=== PATIENT | female | born 1970 | race Caucasian/White ===

== ENCOUNTER → 2018-02-09 15:13 | Outpatient (CLI) | payer BC, SELFPAY ==
--- NOTE | 2018-02-09 15:14 | US_ITS ---
STUDY: ULTRASOUND TRANSVAGINAL CLINICAL: Female, 47 years old. Pelvic pain TECHNIQUE: Transvaginal COMPARISON: None. FINDINGS: Normal uterine size measuring 10.6 x 5.5 x 5.2 cm in maximal craniocaudal dimension. Uterus is diffusely heterogeneous. There are probable poorly defined fibroids, largest is 2.4 cm greatest dimension. Normal endometrial thickness measuring 4 mm. Endometrial echoes are heterogeneous. There are no endometrial masses, and there is no fluid in the endometrial cavity. Nabothian cyst of the uterine cervix. Normal right ovary, measuring 2.6 x 1.8 x 1.8 cm. There are multiple follicles without a dominant cyst. Normal left ovary, measuring 2.2 x 2.6 x 1.1 cm. There are multiple follicles without a dominant cyst. There is no free fluid in the pelvis. A normal bladder contour is seen. Bladder volume is 4 38 mL. US/Pelvic (Non ) IMPRESSION: Heterogeneous enlarged uterus consistent with leiomyomatous change and at least one focal 2.4 cm fibroid. Electronically Signed: Poncho Lawson MD at 19:40 EDT , Service support ,
--- NOTE | 2018-02-09 15:14 | US_ITS ---
STUDY: ULTRASOUND TRANSVAGINAL CLINICAL: Female, 47 years old. Pelvic pain TECHNIQUE: Transvaginal COMPARISON: None. FINDINGS: Normal uterine size measuring 10.6 x 5.5 x 5.2 cm in maximal craniocaudal dimension. Uterus is diffusely heterogeneous. There are probable poorly defined fibroids, largest is 2.4 cm greatest dimension. Normal endometrial thickness measuring 4 mm. Endometrial echoes are heterogeneous. There are no endometrial masses, and there is no fluid in the endometrial cavity. Nabothian cyst of the uterine cervix. Normal right ovary, measuring 2.6 x 1.8 x 1.8 cm. There are multiple follicles without a dominant cyst. Normal left ovary, measuring 2.2 x 2.6 x 1.1 cm. There are multiple follicles without a dominant cyst. There is no free fluid in the pelvis. A normal bladder contour is seen. Bladder volume is 4 38 mL. US/Transvaginal Non- IMPRESSION: Heterogeneous enlarged uterus consistent with leiomyomatous change and at least one focal 2.4 cm fibroid. Electronically Signed: Poncho Lawson MD at 19:40 EDT , Service support ,
== END ==
PROVIDERS: Family Provider Family Medicine; PCP Family Medicine; Visit Provider Obstetrics & Gynecology
DX: N94.6 Dysmenorrhea, unspecified (principal); M54.5 Low back pain
CPT/HCPCS: 76830; 76856; 93976

== ENCOUNTER 2018-05-03 06:11 | Day surgery (SDC) | payer BC, SELFPAY ==
[2018-04-13 11:37] LABS: Hematocrit 41.3 % (37-47); Hemoglobin 13.9 g/dl (12.0-15.0); Mean Corp Hgb Conc 33.7 g/gl (32-36); Mean Corpuscular Hgb 31.3 pg (27.0-32.0); Mean Platelet Vol. 10.5 fl (6.2-12.0); Platelet Count 289 K/mm3 (150-450); RBC Distribution Width CV 12.5 % (11.6-14.6); RBC Distribution Width SD 41.7 fl (35.1-43.9); Red Blood Count 4.44 M/mm3 (4.2-5.4); White Blood Count 5.8 K/mm3 (4.4-11.0)
[2018-04-13 11:40] LABS: Scan Indicated on CBC? Y/N NO
[2018-04-13 11:46] LABS: AST(SGOT) 11 U/L (15-37); Alanine Aminotransfer ALT/SGPT 22 U/L (13-56); Albumin, Serum 3.7 g/dL (3.2-5.0); Alkaline Phosphatase 47 U/L (45-117); Globulin 3.5 g/dL (2.2-4.2); Protein, Total 7.2 g/dL (6.4-8.2)
[2018-04-13 11:55] LABS: Prothrombin Time (Protime)PT. 13.3 SECONDS (11.7-14.9)
[2018-04-13 11:56] LABS: Partial Thromboplast Time 28.9 Seconds (24.1-36.2)
[2018-05-03] VITALS (11 sets, daily range): BP systolic 108–149; BP diastolic 54–90; PULSE 47–78; RESP 14–18; TEMP 35.7–37; O2SAT 93–100; BMI 37.9; BMI 38.0
--- NOTE | 2018-05-03 | HYST_PTH ---
PATIENT: KIMBERLY PASCUAL LOC: [facility] [place] U#:[id number] AGE/SX: 47/F ROOM: RE05/03/[address]: Dr. Lavern Angeles MD : 1970 BED: DIS: 05/04/2018 SPEC #: [id number] RECD: 05/03/18 10:36 STATUS: JOVITA ALANA #: [id number] PIEDAD: 05/03/18 00:[address]: Lavern Angeles DEPT: SURGICAL PATHOLOGY RECD BY: José Cooley ENTERED: 05/03/18 10:36 SP TYPE: HYSTERECT OTHR DR: Dr. Juan R Garrison MD Tissues: Uterus, NOS Procedures: Surgery Specimen Level V HEADER OPERATION: Hysterectomy, lap assisted vaginal, salpingectomy, cysto PRE-OP DIAGNOSIS: Postablation, pelvic pain, dysmenorrhea TISSUE SUBMITTED: Uterus, bilateral fallopian tubes MICROSCOPIC DIAGNOSIS Uterus and bilateral fallopian tubes, vaginal hysterectomy and bilateral salpingectomy: Cervix ? chronic cystic cervicitis. Endometrium ? proliferative endometrium. Myometrium ? intramural and submucosal leiomyomas (largest measuring 3 cm in greatest dimension). Focal adenomyosis. Bilateral fallopian tubes - no pathologic diagnosis. SJ:bernard 05/04/18 MICROSCOPIC DESCRIPTION Slides are reviewed. GROSS DESCRIPTION Received in fixative is one container labeled with the patient's name and designated uterus, bilateral fallopian tubes. The specimen consists of a hysterectomy specimen consisting of uterus with cervix and attached bilateral fallopian tubes. The uterus with cervix weighs 178 gm and measures 11 x 7 x 7 cm. The serosal surface is nuñez, glistening. The ectocervical mucosa is unremarkable. The external os is oval and patulous in contour. The endocervical canal measures 3.5 cm in length and the endocervical mucosa is without any mass lesion. Sections of cervix reveal a few cysts filled with mucoid material. The endometrial cavity is fibrotic in the proximal portion and narrow and measures 2 cm in length and 0.5 cm in width. The endometrium is nuñez, glistening and measures <0.1 cm in thickness. Sections of the uterine wall reveal multiple nodular masses. The largest mass measures 3 cm in greatest dimension. The masses are submucosal to intramural in location. Sections of these masses reveal nuñez whorled cut surfaces without areas of hemorrhage, necrosis or cystic degeneration. The uninvolved uterine wall measures up to 3 cm in thickness. The right fallopian tube measures 5.5 cm in length and up to 1 cm in width. The fimbrial end is identified. A paratubal cyst is noted measuring 1 cm in greatest dimension. The left fallopian tube is similar appearance to right and measures 6 cm in length and up to 1 cm in width. Sections of both fallopian tubes do not reveal any mass lesion. Line Producer sections are submitted in ten cassettes as follows: 1 - anterior cervix, 2 - posterior cervix, 3 & 4 - anterior uterine wall, 5 & 6 - posterior uterine wall, 7 ? smaller and intermediate size nodular masses, 8 ? largest nodular mass, 9 ? right fallopian tube, 10 ? left fallopian tube. / FLOYD:rg 05/03/18 TC:1 CPT: 09182
[2018-05-03] MEDS: Lubricating Jelly 60 GM Tube 30 GM TOPICAL (06:56)
[2018-05-03] MEDS: Phenazopyridine 95 MG Tablet PO (07:00)
[2018-05-03 07:06] LABS: Internal QC Validated? YES +Cl - CLEAR BKGD; Pregnancy, Urine Negative Negative
--- NOTE | 2018-05-03 07:29 | HP.PCM_ITS ---
- Problem List (1) Abnormal uterine bleeding Status: Acute (2) Pelvic pain Status: Acute History Date of Admission: 05/03/18 History of this : This is a 47 year-old presents with pelvic pain and AUB, failed ablation and medical management, plan laparoscopic hysterectomy Surgical History: Surgical History (Last Updated 02/05/18 @ 13:14 by Kely Jiang) S/P dilation and curettage Z98.890 x2 uterine ablation Allergies No Known Allergies Allergy (Verified 04/13/18 10:11) Home Medications: Home Medications NK [NK] 02/05/18 Smoking Status: Never smoker History Past Pregnancies: Past Pregnancies Delivery Date Name GA/Weeks Outcome Route Weight Gender Labor Length Anesthesia Delivery Location Provider FOB Review of Systems Constitutional: Denies: Fever, Malaise Eyes: Denies: Blurred vision, Vision Change HEENT: Denies: Head Aches, Visual Changes Cardiovascular: Denies: Chest Pain, Palpitations Respiratory: Denies: Cough, Shortness of Breath, Wheezing Gastrointestinal: Denies: Abdominal Pain, Diarrhea, Nausea, Vomiting Genitourinary: Denies: Dysuria, Hematuria Musculoskeletal: Denies: Joint Pain, Muscle pain Skin: Denies: Lesions, Rash Neurological: Denies: Blurred vision, Focal weakness, Headaches Psychiatric: Denies: Anxiety, Depression Endocrine: Denies: Heat/ Cold Intolerance Hematologic/ Lymphatic: Denies: Easy Bruising, Easy Bleeding Physical Exam Vitals: Vital Signs Temp Pulse Resp BP Pulse Ox 98.6 F 77 18 123/57 H 100 05/03/18 06:39 05/03/18 06:39 05/03/18 06:39 05/03/18 06:39 05/03/18 06:39 General: Alert, Cooperative, No apparent distress HEENT: Atraumatic, Normocephalic. Negative for: Thyromegaly, Lymphadenopathy Cardiovascular: Regular rate Lungs: Normal air movement Abdomen: Soft, Non Tender Neurological: Deep Tendon Reflexes 2+/4 and Symmetrical, Neuro grossly intact. Negative for: Clonus VOCATIONAL HORTICULTURE INSTRUCTOR: Normal external genitalia. Negative for: Vulvar lesions Assessment/Plan All Active Problems (Last Reviewed 02/05/18 @ 13:13 by Kely Jiang) Abnormal uterine bleeding (Acute) Pelvic pain (Acute) This is a 47 year-old, presents for LAVH BS cystosocpy discussed surgical risks including risks of anesthesia, infection, bleeding, injury to bowel, bladder or blood vessels, and patient wishes to proceed with surgery.
--- NOTE | 2018-05-03 07:29 | PCM.OPRPT ---
Problem List (1) Abnormal uterine bleeding Status: Acute (2) Pelvic pain Status: Acute Report of Operation Date of Procedure: 05/03/18 Pre-Operative Diagnosis: pelvic pain AUB dysmenorrhea Post-Operative Diagnosis: Same Surgery/Procedure Performed:: lavh bs cystosocpy Description of Surgical Findings:: Enlarged uterus normal bilateral fallopian tubes and ovaries ore roaster: Germaine Kearns Type of Anesthesia:: General Special Medications: None Specimen's removed: uterus tubes Drains: silvestre Estimated Blood Loss (mL): 100 Fluids Replaced: crystalloid Description of Procedure: Patient received preoperative antibiotics and SCDs were on preoperatively. Patient was taken back to the operating room and placed in the dorsal lithotomy position. General anesthesia was induced and patient was prepped and draped in normal sterile fashion. Uterine manipulator was placed inside the uterus and Silvestre catheter placed in the bladder. The umbilicus was grasped with towel clamps and an intraumbilical incision was made after injecting with quarter percent Marcaine and a Veress needle entered into the abdomen confirmed to be intra-abdominal with a low opening pressure. Abdomen was insufflated with CO2 gas and the Veress needle removed and the 5 mm trocar was placed under direct visualization without complication. Right and left lower quadrants were transilluminated and injected with quarter percent Marcaine and 5 mm ports placed under direct visualization. Pelvis was well visualized see operative findings for additional information. Bilateral fallopian tubes were identified and transected with the LigaSure device across the mesosalpinx to the level of the utero-ovarian ligament which was also transected with the LigaSure device. The broad ligament was opened up by transecting the round ligament bilaterally and skeletonizing the uterine vessels bilaterally and creating a bladder flap using the LigaSure device. The uterine arteries were transected bilaterally with good visualization of the bladder and the ureters were seen to be inferior lateral to the operative area. Attention was then paid to the vaginal portion of the procedure and the cervix was grasped with Nicolette clamps and circumferentially injected with dilute vasopressin. A circumferential incision was made and the vaginal mucosa was mobilized off posteriorly and the cul-de-sac entered into sharply and a longneck speculum placed. The anterior cul-de-sac was then identified and entered into sharply. The uterosacral ligaments were clamped cut and suture ligated with 0 Monocryl bilaterally followed by the cardinal ligaments which were clamped cut and suture ligated bilaterally with 0 Monocryl. The uterus serially descended and was removed without difficulty with minimal morcellation. Pelvic sidewall pedicles were checked and noted to have excellent hemostasis. The vaginal mucosa was reapproximated incorporating the posterior peritoneum. This was reapproximated using 0 Vicryl [id number] sutures. Excellent hemostasis was noted. The cystoscopy was then performed and bilateral ureteral strong spray was noted and the bladder was noted to have no abnormality or lesions seen. Silvestre catheter was replaced and then attention paid to the abdominal portion of the procedure again. The pelvis and cul-de-sac was well visualized and no significant active bleeding noted but some raw areas were seen on the peritoneum and therefore Denise was applied. Pressure was taken down and the areas visualized and noted of excellent hemostasis. All ports were removed under direct visualization without complication and the abdomen was desufflated of air. The instruments removed from the abdomen and the vagina vaginal sweep was negative. Port sites on the abdomen were closed with 4-0 Monocryl interrupted sutures and Steri's and windows were applied. She was awoken and taken recovery in stable condition. Grafts/Implants Used: none - Admit VTE Documentation VTE Present on Admission: No VTE Mechan Device Prophylaxis: SCD's
--- NOTE | 2018-05-03 07:33 | OP.PCM_ITS ---
Problem List (1) Abnormal uterine bleeding Status: Acute (2) Pelvic pain Status: Acute Report of Operation Date of Procedure: 05/03/18 Pre-Operative Diagnosis: pelvic pain AUB dysmenorrhea Post-Operative Diagnosis: Same Surgery/Procedure Performed:: lavh bs cystosocpy Description of Surgical Findings:: Enlarged uterus normal bilateral fallopian tubes and ovaries assistant softball coach: Germaine Kearns Type of Anesthesia:: General Special Medications: None Specimen's removed: uterus tubes Drains: silvestre Estimated Blood Loss (mL): 100 Fluids Replaced: crystalloid Description of Procedure: Patient received preoperative antibiotics and SCDs were on preoperatively. Patient was taken back to the operating room and placed in the dorsal lithotomy position. General anesthesia was induced and patient was prepped and draped in normal sterile fashion. Uterine manipulator was placed inside the uterus and Silvestre catheter placed in the bladder. The umbilicus was grasped with towel clamps and an intraumbilical incision was made after injecting with quarter percent Marcaine and a Veress needle entered into the abdomen confirmed to be intra-abdominal with a low opening pressure. Abdomen was insufflated with CO2 gas and the Veress needle removed and the 5 mm trocar was placed under direct visualization without complication. Right and left lower quadrants were transilluminated and injected with quarter percent Marcaine and 5 mm ports placed under direct visualization. Pelvis was well visualized see operative findings for additional information. Bilateral fallopian tubes were identified and transected with the LigaSure device across the mesosalpinx to the level of the utero-ovarian ligament which was also transected with the LigaSure device. The broad ligament was opened up by transecting the round ligament bilaterally and skeletonizing the uterine vessels bilaterally and creating a bladder flap using the LigaSure device. The uterine arteries were transected bilaterally with good visualization of the bladder and the ureters were seen to be inferior lateral to the operative area. Attention was then paid to the vaginal portion of the procedure and the cervix was grasped with Nicolette clamps and circumferentially injected with dilute vasopressin. A circumferential incision was made and the vaginal mucosa was mobilized off posteriorly and the cul-de- sac entered into sharply and a longneck speculum placed. The anterior cul-de- sac was then identified and entered into sharply. The uterosacral ligaments were clamped cut and suture ligated with 0 Monocryl bilaterally followed by the cardinal ligaments which were clamped cut and suture ligated bilaterally with 0 Monocryl. The uterus serially descended and was removed without difficulty with minimal morcellation. Pelvic sidewall pedicles were checked and noted to have excellent hemostasis. The vaginal mucosa was reapproximated incorporating the posterior peritoneum. This was reapproximated using 0 Vicryl figure-of- eight sutures. Excellent hemostasis was noted. The cystoscopy was then performed and bilateral ureteral strong spray was noted and the bladder was noted to have no abnormality or lesions seen. Silvestre catheter was replaced and then attention paid to the abdominal portion of the procedure again. The pelvis and cul-de-sac was well visualized and no significant active bleeding noted but some raw areas were seen on the peritoneum and therefore Denise was applied. Pressure was taken down and the areas visualized and noted of excellent hemostasis. All ports were removed under direct visualization without complication and the abdomen was desufflated of air. The instruments removed from the abdomen and the vagina vaginal sweep was negative. Port sites on the abdomen were closed with 4-0 Monocryl interrupted sutures and Steri's and windows were applied. She was awoken and taken recovery in stable condition. Grafts/Implants Used: none - Admit VTE Documentation VTE Present on Admission: No VTE Mechan Device Prophylaxis: SCD's
[2018-05-03] MEDS: Vasopressin 20 UNITS/ML Vial (08:20)
[2018-05-03] MEDS: Bupivacaine 0.25% 30 ML Vial (08:45)
[2018-05-03] MEDS: Ketorolac 30 MG/ML Syringe IV ×2 (12:41→18:16)
[2018-05-03] MEDS: Dextrose 5%-Lactated Ringers 1,000 ML 125 ML IV ×2 (12:41→21:15)
[2018-05-03] MEDS: 0.9% Normal Saline 1,000 ML 999 ML IV (12:45)
[2018-05-03] MEDS: Acetaminophen 500 MG Tablet 1000 MG PO ×2 (14:33→21:48)
[2018-05-03] MEDS: Ondansetron 4 MG/2 ML Vial IV (18:22)
[2018-05-03] MEDS: Enoxaparin 40 MG/0.4 ML Syringe SC (21:48)
[2018-05-04] MEDS: Ketorolac 30 MG/ML Syringe IV ×2 (01:07→06:14)
[2018-05-04 01:55] VITALS: BP 121/64; PULSE 88; RESP 16; TEMP 37.2; O2SAT 95
[2018-05-04] MEDS: Acetaminophen 500 MG Tablet 1000 MG PO (05:16)
[2018-05-04] MEDS: 0.9% NaCl Peripheral Flush Adult/Peds IV (06:14)
[2018-05-04 06:48] LABS: Hematocrit 34.9 % (37-47); Hemoglobin 11.7 g/dl (12.0-15.0); Mean Corp Hgb Conc 33.5 g/gl (32-36); Mean Corpuscular Hgb 30.9 pg (27.0-32.0); Mean Corpuscular Volume 92.1 fL (81-99); Mean Platelet Vol. 10.4 fl (6.2-12.0); Platelet Count 278 K/mm3 (150-450); RBC Distribution Width CV 12.7 % (11.6-14.6); RBC Distribution Width SD 42.8 fl (35.1-43.9); Red Blood Count 3.79 M/mm3 (4.2-5.4); White Blood Count 13.8 K/mm3 (4.4-11.0)
[2018-05-04 06:55] LABS: Scan Indicated on CBC? Y/N NO
[2018-05-04 08:15] VITALS: O2SAT 95
--- NOTE | 2018-05-04 09:31 | PCM.DC.VHY ---
Discharge Diet: No Restrictions Discharge Activity: Return to Normal Activity, May Not Drive, May Shower May resume sexual activity in: 6-8 weeks Call your doctor if your incision/area has: Continuous Slow Oozing, Sudden Increased Bleeding, Increased Pain/ Swelling, Increased Redness, Foul Smelling Discharge Call your doctor if you observe: Fever of 101 or Higher, Inability to urinate, Inability to have a bowel movement, Using more than one pad per hour Allergies/Adverse Reactions: Allergies No Known Allergies Allergy (Verified 04/13/18 10:11) Medications to take at Discharge Naproxen [Naprosyn] 250 - 500 mg PO Q8H PRN PRN #30 tab 05/04/18 Oxycodone HCl/Acetaminophen [Percocet 5-325] 1 - 2 tablet PO Q4H PRN PRN 7 Days #28 tablet 05/04/18 The following prescriptions were given: Oxycodone HCl/Acetaminophen [Percocet 5-325] 1 - 2 tablet PO Q4H PRN PRN 7 Days #28 tablet PRN Reason: Moderate-Severe pain Naproxen [Naprosyn] 250 - 500 mg PO Q8H PRN PRN #30 tab PRN Reason: MILD PAIN Primary Care Physician: Juan R Garrison MD [Primary Care Provider] - Please Follow Up With: Lavern Angeles MD - [phone]
--- NOTE | 2018-05-04 09:32 | PCM.PN.OB ---
Patient Problems: Active and Suspected Problems (Last Reviewed 02/05/18 @ 13:13 by Kely Jiang) Abnormal uterine bleeding (Acute) Pelvic pain (Acute) Subjective: doing well no complaints - Physical Exam Vital Signs Temp Pulse Resp BP Pulse Ox 99.0 F 88 16 121/64 H 95 05/04/18 01:55 05/04/18 01:55 05/04/18 01:55 05/04/18 01:55 05/04/18 08:15 Oxygen Flow Rate (L/min) 2 Oxygen Delivery Method Room Air Weight: 236 lb 0.007 oz Body Mass Index (BMI) 38.0 Intake and Output for Last 24 Hours 05/02/18 05/03/18 05/04/18 23:59 23:59 23:59 Intake Total 5102 / 5102 1237 / 1237 Output Total 2580 / 2580 1100 / 1100 Balance 2522 / 2522 137 / 137 Laboratory Tests Past 24 Hrs 05/04/18 05:12 WBC 13.8 H RBC 3.79 L Hgb 11.7 L Hct 34.9 L MCV 92.1 MCH 30.9 MCHC 33.5 RDW 12.7 RDW Differential 42.8 Plt Count 278 MPV 10.4 Medical Necessity - Tobacco Use Smoking Status: Never smoker Assessment/Plan All Active Problems (Last Reviewed 02/05/18 @ 13:13 by Kely Jiang) Abnormal uterine bleeding (Acute) Pelvic pain (Acute) s/p LAVH doing well routine care nv home
[2018-05-04 10:03] VITALS: BP 97/54; PULSE 72; RESP 18; TEMP 36.9; O2SAT 97
== END 2018-05-04 10:25 | disposition home or self-care (01) ==
LOC: SDC 06:11 → AC 06:12 → MS3 05-04 06:35
PROVIDERS: Family Provider Family Medicine; PCP Family Medicine; Visit Provider Obstetrics & Gynecology
PROC: 0UT9FZZ Resection of Uterus, Via Natural or Artificial Opening With Percutaneous Endoscopic Assistance (ICD-10-PCS; CPT 58552; principal; 2018-05-03 07:05)
DX: N72 Inflammatory disease of cervix uteri (principal); N93.9 Abnormal uterine and vaginal bleeding, unspecified; R10.2 Pelvic and perineal pain
CPT/HCPCS: 00840; 58552; 36415; 80076; 81025; 85027; 85610; 85730; 86850; 86900; 88307; J7030; J7120; A4216; J2405

== ENCOUNTER 2018-06-19 10:33 | Day surgery (SDC) | payer BC, SELFPAY ==
[2018-06-08 13:53] LABS: Hematocrit 41.1 % (37-47); Hemoglobin 13.6 g/dl (12.0-15.0); Mean Corp Hgb Conc 33.1 g/gl (32-36); Mean Corpuscular Hgb 30.8 pg (27.0-32.0); Mean Platelet Vol. 10.1 fl (6.2-12.0); Platelet Count 294 K/mm3 (150-450); RBC Distribution Width CV 12.6 % (11.6-14.6); RBC Distribution Width SD 42.5 fl (35.1-43.9); Red Blood Count 4.42 M/mm3 (4.2-5.4)
[2018-06-08 13:55] LABS: Scan Indicated on CBC? Y/N NO
[2018-06-18 12:57] LABS: Mucous, Urine 0 SEEN /hpf (<or=2+); Red Blood Cells-Urine 0 SEEN /hpf (0-5); White Blood Cells 0 SEEN /hpf (0-5)
[2018-06-18 13:50] LABS: Color, Urine Yellow (Yellow); Glucose, Dipstick Normal (Normal); Ketone-Dipstick Negative (Negative); Leukocyte Esterase-Dipstick Negative /ul (Negative); Nitrite-Dipstick Negative (Negative); Occult Blood-Urine 10 /ul (Negative); Protein-Dipstick Negative (Negative); Urine Bilirubin Dipstick Negative (Negative); Urine Clarity Sl. Cloudy (Clear); Urine Urobilinogen Normal (Normal)
[2018-06-18 13:58] LABS: Bacteria RARE /hpf (None Seen); Squamous Epithelial Cells - UA 0-5 SEEN /hpf (5-10)
--- NOTE | 2018-06-19 | IMM_PTH ---
PATIENT: KIMBERLY PASCUAL LOC: [facility] – [place] U#:[id number] AGE/SX: 47/F ROOM: RE06/19/[address]: Dr. Marysol Dunn MD : 1970 BED: DIS: 06/19/2018 SPEC #: [id number] RECD: 06/20/18 12:42 STATUS: JOVITA REQ #: [id number] PIEDAD: 06/19/18 00:[address]: Marysol Dunn DEPT: IMMUNOHISTOCHEMISTRY RECD BY: Ifrah Montalvo ENTERED: 06/20/18 12:43 SP TYPE: IMMUNO OTHR DR: Dr. Juan R Garrison MD Tissues: Urinary bladder, NOS Procedures: CK20 (add) P53 (add) CK7 (initial) PHYSICIAN & INSTITUTION [place] [id number] SPECIMEN INFORMATION: Tissue Source: Bladder mass Clinical Info: Bladder mass Specimen Number: [id number] CPT code: 71106, 91631 x2 METHODOLOGY: Deparaffinized sections of prefer/formalin-fixed tissue or PAP/DQ stained slides are incubated with monoclonal/polyclonal antibodies/oligonucleotide probes. Localization is made via biotin free immunoperoxidase method. Appropriate controls are performed and reacted as expected. Results on target cell population are indicated in the following table: RESULTS: ANTIBODY / CLONE RESULT CK7 (OV-TL12/30) positive CK20 (KS20.8) negative P53 (DO-7) negative These tests were developed and their performance characteristics determined by [facility]. They may not have been cleared or approved by the U.S. Food and Drug Administration. The FDA has determined that such clearance or approval is not necessary. INTERPRETATION: Bladder mass: Negative for malignancy. SJ:bernard 06/21/18 Case has been reviewed in consultation with Dr. Mejía who concurs with the above diagnosis. IDC:AM
[2018-06-19 10:46] VITALS: BP 135/66; PULSE 76; RESP 16; TEMP 37.1; O2SAT 99; BMI 39.8
--- NOTE | 2018-06-19 11:28 | DCINST_ITS ---
Discharge Diet: No Restrictions Discharge Activity: May not drive while taking narcotic pain medications. May resume sexual activity in: 2 weeks Call your doctor if you observe: Fever of 101 or Higher, Inability to urinate, Inability to have a bowel movement, Shortness of breath, Chest pain, Calf discomfort, Uncontrolled pain Allergies/Adverse Reactions: Allergies adhesive tape Allergy (Verified 06/08/18 09:06) Rash Medications to take at Discharge Cephalexin [Keflex] 500 mg PO Q12 3 Days #6 cap 06/19/18 The following prescriptions were given: Cephalexin [Keflex] 500 mg PO Q12 3 Days #6 cap Primary Care Physician: Juan R Garrison MD [Primary Care Provider] - Test Results: Test results from this visit will be discussed in further detail at your follow- up appointment, if applicable. Please Follow Up With: Marysol Dunn MD - 1 week
[2018-06-19] MEDS: Cefazolin 2 GM in 0.9% Normal Saline 100 ML IV (11:35)
[2018-06-19 12:05] VITALS: BP 121/71; BP 135/66; PULSE 63; RESP 16; TEMP 36.9; O2SAT 97
--- NOTE | 2018-06-19 12:10 | MASS_PTH ---
PATIENT: KIMBERLY PASCUAL LOC: [facility] – [place] U#:[id number] AGE/SX: 47/F ROOM: RE06/19/[address]: Dr. Marysol Dunn MD : 1970 BED: DIS: 06/19/2018 SPEC #: [id number] RECD: 06/19/18 12:28 STATUS: JOVITA ALANA #: [id number] PIEDAD: 06/19/18 12:[address]: Marysol Dunn DEPT: SURGICAL PATHOLOGY RECD BY: Thanh Ferguson ENTERED: 06/19/18 13:19 SP TYPE: Mass OTHR DR: Dr. Juan R Garrison MD Tissues: Urinary bladder, NOS Procedures: Surgery Specimen Level IV HEADER OPERATION: TUR bladder, Olympus PRE-OP DIAGNOSIS: Bladder mass TISSUE SUBMITTED: Bladder mass MICROSCOPIC DIAGNOSIS Bladder mass, biopsy: A piece of urothelial mucosa with chronic inflammation and changes consistent with cystitis cystica glandularis. Fragments of squamous mucosa with cautery artifact, no pathologic diagnosis. Negative for malignancy. See comment. FLOYD:bernard 06/20/18 COMMENT Cautery artifacts are noted in both pieces. Detrusor muscle is not seen in the submitted specimen. Immunohistochemistry ([id number]) supports the above diagnosis. Case has been reviewed in consultation with Dr. Mejía who concurs with the above diagnosis. IDC:AM MICROSCOPIC DESCRIPTION Slides are reviewed. GROSS DESCRIPTION Received in fixative is one container labeled with the patient's name and designated bladder mass. The specimen consists of two pieces of nuñez-pink soft tissue measuring in aggregate 0.7 x 0.5 x 0.2 cm. The specimen is totally submitted in one cassette. / FLOYD:bernard 06/19/18 TC:3 CPT: 49207
[2018-06-19 12:15] VITALS: BP 111/63; BP 135/66; PULSE 66; RESP 16; O2SAT 96
--- NOTE | 2018-06-19 12:20 | PCM.IMDPSTOP ---
Immediate Post-Op Note Date of Procedure: 06/19/18 Primary Surgeon/Physician: Marysol Dunn MD game manager: Marysol Dunn Pre-Operative Diagnosis: Bladder mass Post-Operative Diagnosis: same Surgery/Procedure Performed:: cystoscopy, transurethral resection bladder tumor, small Description of Surgical Findings:: 1cm mass and deep sample removed. hemostasis achieved. no other lesion identified. no complication. Estimated Blood Loss: 2cc Specimen's removed: bladder mass Type of Anesthesia:: General Special Medications: ancef - Admit VTE Documentation VTE Present on Admission: Yes VTE Mechan Device Prophylaxis: SCD's VTE Pharm Prophylaxis ordered?: No Reason prophylaxis not ordered:: Treatment Not Indicated
--- NOTE | 2018-06-19 12:23 | OP.PN_ITS ---
Immediate Post-Op Note Date of Procedure: 06/19/18 Primary Surgeon/Physician: Marysol Dunn MD plain clothes police officer: Marysol Dunn Pre-Operative Diagnosis: Bladder mass Post-Operative Diagnosis: same Surgery/Procedure Performed:: cystoscopy, transurethral resection bladder tumor , small Description of Surgical Findings:: 1cm mass and deep sample removed. hemostasis achieved. no other lesion identified. no complication. Estimated Blood Loss: 2cc Specimen's removed: bladder mass Type of Anesthesia:: General Special Medications: ancef - Admit VTE Documentation VTE Present on Admission: Yes VTE Mechan Device Prophylaxis: SCD's VTE Pharm Prophylaxis ordered?: No Reason prophylaxis not ordered:: Treatment Not Indicated
--- NOTE | 2018-06-19 12:23 | PCM.OPRPT ---
Problem List (1) Bladder mass Status: Acute Report of Operation Date of Procedure: 06/19/18 Pre-Operative Diagnosis: Bladder mass Post-Operative Diagnosis: same Surgery/Procedure Performed:: cystoscopy, transurethral resection bladder tumor, small Description of Surgical Findings:: 1cm mass and deep sample removed. hemostasis achieved. no other lesion identified. no complication. animal damage control agent: Marysol Dunn Type of Anesthesia:: General Special Medications: ancef Specimen's removed: bladder mass Estimated Blood Loss (mL): 2cc Description of Procedure: The patient is a 47-year-old female that had a hysterectomy with a cystoscopy at the conclusion of the case approximately 5 weeks ago. At that time a 0.5 cm bladder lesion was identified and the patient was sent to me in the office. She presents today for resection of the tissue. All risks benefits and alternatives were discussed in the office and she agreed to proceed. Patient was taken to the operating room and placed on the operating room table. Anesthesia monitored the head neck area IV access and vital signs throughout the case. Once anesthesia was appropriately administered the patient was placed into dorsal lithotomy position was prepped and draped in usual sterile fashion. Using a 30? lens a cystoscopy was performed and no other lesions were identified. The lesion in question was located on the trigone and was approximately 1 cm in size, enlarged and more papillary in nature than visualized on the previous photograph. It was in the middle of the trigone approximately 0.5 cm proximal to the bladder neck. The area was resected using the resectoscope and hemostasis was achieved using the resectoscope as well. There were no complications during the procedure. The patient's bladder was emptied and the specimen was sent for evaluation and pathology. The patient was awakened and taken to the recovery room in good condition.
[2018-06-19 12:25] VITALS: BP 117/65; BP 135/66; PULSE 67; RESP 16; TEMP 36.6; O2SAT 97
--- NOTE | 2018-06-19 12:26 | OP.PCM_ITS ---
Problem List (1) Bladder mass Status: Acute Report of Operation Date of Procedure: 06/19/18 Pre-Operative Diagnosis: Bladder mass Post-Operative Diagnosis: same Surgery/Procedure Performed:: cystoscopy, transurethral resection bladder tumor , small Description of Surgical Findings:: 1cm mass and deep sample removed. hemostasis achieved. no other lesion identified. no complication. director of resource development: Marysol Dunn Type of Anesthesia:: General Special Medications: ancef Specimen's removed: bladder mass Estimated Blood Loss (mL): 2cc Description of Procedure: The patient is a 47-year-old female that had a hysterectomy with a cystoscopy at the conclusion of the case approximately 5 weeks ago. At that time a 0.5 cm bladder lesion was identified and the patient was sent to me in the office. She presents today for resection of the tissue. All risks benefits and alternatives were discussed in the office and she agreed to proceed. Patient was taken to the operating room and placed on the operating room table. Anesthesia monitored the head neck area IV access and vital signs throughout the case. Once anesthesia was appropriately administered the patient was placed into dorsal lithotomy position was prepped and draped in usual sterile fashion. Using a 30? lens a cystoscopy was performed and no other lesions were identified. The lesion in question was located on the trigone and was approximately 1 cm in size, enlarged and more papillary in nature than visualized on the previous photograph. It was in the middle of the trigone approximately 0.5 cm proximal to the bladder neck. The area was resected using the resectoscope and hemostasis was achieved using the resectoscope as well. There were no complications during the procedure. The patient's bladder was emptied and the specimen was sent for evaluation and pathology. The patient was awakened and taken to the recovery room in good condition.
[2018-06-19 12:49] VITALS: BP 135/66
== END 2018-06-19 12:53 | disposition home or self-care (01) ==
LOC: SDC 10:34 → AC 10:35
PROVIDERS: Family Provider Family Medicine; PCP Family Medicine; Visit Provider Urology
PROC: 0TBB8ZZ Excision of Bladder, Via Natural or Artificial Opening Endoscopic (ICD-10-PCS; CPT 52234; principal; 2018-06-19 12:00)
DX: N30.80 Other cystitis without hematuria (principal); N32.9 Bladder disorder, unspecified
CPT/HCPCS: 00912; 52234; 36415; 81001; 85027; 88305; 88341; 88342; J7120; J2405

== ENCOUNTER 2018-10-21 11:00 | Emergency (ER) | payer BC, SELFPAY ==
[2018-10-21 11:02] VITALS: BP 160/93; PULSE 78; RESP 17; TEMP 36.7; O2SAT 99; BMI 41.5
--- NOTE | 2018-10-21 11:15 | RAD_ITS ---
STUDY: X-RAY - RIGHT SHOULDER REASON FOR EXAM: Female, 48 years old. Status post fall TECHNIQUE: 4 view(s) of the shoulder. COMPARISON: None. FINDINGS: Nondisplaced mildly comminuted fracture through the humeral head. Remainder is within normal limits RAD/Shoulder min 2 Views IMPRESSION: Nondisplaced and mildly comminuted right humeral head fracture without displacement Electronically Signed: Joshua Crews DO at 12:00 EST Tel , Service support ,
--- NOTE | 2018-10-21 11:41 | ED.VISSUMM ---
- ER Visit Summary Date of Service: 10/21/18 Chief Complaint: Right shoulder pain status post fall. History of Present Illness: The patient is a 48 F who is right-hand dominant. She slipped on the ice yesterday. She landed on her right upper extremity. She complains of pain in the right shoulder. She also has minimal pain right elbow. She denied head trauma. No neck pain. Denies paresthesia, anesthesia or motor weakness present at time of the injury. She denies cardiac respiratory symptoms. She is on no anticoagulant. Physical Examination: Patient will not move her right upper extremity. Vital signs noted and blood pressure is elevated at 160/93. HEENT exam is unremarkable with no evidence of trauma. No cervical spine tenderness and cleared per Nexus criteria. Lungs are clear to auscultation. Heart is regular without murmur, gallop or rub. There is pain palpation over the proximal humerus. Is no pain the patient over the clavicle or AC joint. There is little discomfort over the lateral epicondyle. Is no pain the patient over the medial epicondyle or olecranon process. There is no pain the patient was radial head with supination pronation. There is no pain the patient with distal radius ulna. No pain the patient with carpal bones, metacarpal bones or phalanges. Axillary, median, radial and ulnar function intact. Radial pulses palpable and symmetric. Test Results: Three-view x-ray of the right shoulder reveals a nondisplaced proximal humeral fracture involving the greater tuberosity. Emergency Department Course and Treatment: X-ray was obtained. Differential is fracture versus rotator cuff injury versus both Treatment Plan: Sling and swath and follow up with orthopedic nuclear radiation engineer Disposition: Discharged home in stable condition with spouse Impression: Nondisplaced proximal humeral fracture right This note was generated with eDealy[employer] dictation software. It may contain incorrect words, spelling, and punctuation that were not noted in review of the chart prior to signing ED Disposition - Plan for ED Patient: Disposition: Home or Assisted Living Chief Complaint: Upper Extremity Injury Instructions: ED Fx Shoulder Prescriptions: Hydrocodone Bitart/Apap 5-325 [[place] 5MG-325MG] 1 tablet PO Q6H PRN PRN 3 Days #10 tablet PRN Reason: Pain Referrals: Juan R Garrison MD [Primary Care Provider] - Lulu Avelar DO [STAFF PHYSICIAN] - 5-7 Days Additional Instructions: Your your prescription was electronically transmitted to [facility] pharmacy on [facility].
--- NOTE | 2018-10-21 11:45 | ED.DCSUM_ITS ---
- ER Visit Summary Date of Service: 10/21/18 Chief Complaint: Right shoulder pain status post fall. History of Present Illness: The patient is a 48 F who is right-hand dominant. She slipped on the ice yesterday. She landed on her right upper extremity. She complains of pain in the right shoulder. She also has minimal pain right elbow. She denied head trauma. No neck pain. Denies paresthesia, anesthesia or motor weakness present at time of the injury. She denies cardiac respiratory symptoms. She is on no anticoagulant. Physical Examination: Patient will not move her right upper extremity. Vital signs noted and blood pressure is elevated at 160/93. HEENT exam is unre markable with no evidence of trauma. No cervical spine tenderness and cleared per Nexus criteria. Lungs are clear to auscultation. Heart is regular without murmur, gallop or rub. There is pain palpation over the proximal humerus. Is no pain the patient over the clavicle or AC joint. There is little discomfort over the lateral epicondyle. Is no pain the patient over the medial epicondyle or olecranon process. There is no pain the patient was radial head with supination pronation. There is no pain the patient with distal radius ulna. No pain the patient with carpal bones, metacarpal bones or phalanges. Axillary, median, radial and ulnar function intact. Radial pulses palpable and symmetric. Test Results: Three-view x-ray of the right shoulder reveals a nondisplaced proximal humeral fracture involving the greater tuberosity. Emergency Department Course and Treatment: X-ray was obtained. Differential is fracture versus rotator cuff injury versus both Treatment Plan: Sling and swath and follow up with orthopedic station tender Disposition: Discharged home in stable condition with spouse Impression: Nondisplaced proximal humeral fracture right This note was generated with Un[employer] dictation software. It may contain incorrect words, spelling, and punctuation that were not noted in review of the chart prior to signing ED Disposition - Plan for ED Patient: Disposition: Home or Assisted Living Chief Complaint: Upper Extremity Injury Instructions: ED Fx Shoulder Prescriptions: Hydrocodone Bitart/Apap 5-325 [[place] 5MG-325MG] 1 tablet PO Q6H PRN PRN 3 Days #10 tablet PRN Reason: Pain Referrals: Juan R Garrison MD [Primary Care Provider] - Lulu Avelar DO [STAFF PHYSICIAN] - 5-7 Days Additional Instructions: Your your prescription was electronically transmitted to [facility] pharmacy on [address] [facility].
== END 2018-10-21 11:58 | disposition home or self-care (01) ==
PROVIDERS: Emergency Provider Emergency Medicine; Family Provider Family Medicine; PCP Family Medicine
DX: S42.254A Nondisplaced fracture of greater tuberosity of right humerus, initial encounter for closed fracture (principal); W00.0XXA Fall on same level due to ice and snow, initial encounter; Y93.9 Activity, unspecified; Y92.89 Other specified places as the place of occurrence of the external cause; Y99.8 Other external cause status; E66.9 Obesity, unspecified
CPT/HCPCS: 73030; 99282

== ENCOUNTER → 2018-10-30 09:41 | Outpatient (CLI) | payer BC, SELFPAY ==
[2018-10-30 09:33] VITALS: BMI 41.5
--- NOTE | 2018-10-30 09:43 | RAD_ITS ---
STUDY: X-RAY - RIGHT SHOULDER REASON FOR EXAM: Pain. TECHNIQUE: 3 view(s) of the shoulder. COMPARISON: Radiographs 10/21/2018. FINDINGS: Normal glenohumeral articulation. There is joint space narrowing of the acromioclavicular joint. Normal acromion. There is a nondisplaced fracture of the greater tuberosity. The soft tissue structures are unremarkable. Normal visualized pulmonary apex. RAD/Shoulder min 2 Views IMPRESSION: Greater tuberosity fracture without interval change. Acromioclavicular arthrosis. Electronically Signed: Ángel Julian MD at 15:22 EST Tel , Service support ,
--- OUTSIDE RECORDS SUMMARY | 2019-01-31 16:38 | XMS RPT_ITS ---
:1970 Author Organization OHIP Support Name Relationship Address Phone KAMILA PASCUAL Unavailable [address] + [place] [address] SHEAREREQU Unavailable [address] + [place] [address] KAMILA PASCUAL Unavailable [address] + [place] [address] TRI Unavailable [address] + [place] [address] KAMILA PASCUAL Unavailable [address] + [place] [address] TRI Unavailable [address] + [place] [address] KAMILA PASUCAL Unavailable [address] + [place] [address] TRI Unavailable [address] + [place] [address] KAMILA PASCUAL Unavailable [address] + [place] [address] TRI Unavailable [address] + [place] [address] AKMILA PASCUAL Unavailable [address] + [place] [address] TRI Unavailable [address] + [place] [address] KAMILA PASCUAL Unavailable [address] + [place] [address] TRI Unavailable [address] + [place] [address] KAMILA PASCUAL Unavailable [address] + [place] [address] TRI Unavailable [address] + [place] [address] SAMARA, KAMILA Unavailable [address] + [place] [address] TRI Unavailable [address] + [place] [address] SAMARA, KAMILA Unavailable [address] + [place] [address] TRI Unavailable [address] + [place] [address] SAMARA, KAMILA Unavailable [address] + [place] [address] TRI Unavailable [address] + [place] [address] SAMARA, KAMILA Unavailable [address] + [place] [address] TRI Unavailable [address] + [place] [address] SAMARA, KAMILA Unavailable [address] + [place] [address] TRI Unavailable [address] + [place] [address] Care Team Providers Name Role Phone Lulu Avelar Attending Unavailable NAUMOFF, GAVI Referring Unavailable Lulu Avelar Attending Unavailable Lulu Avelar Referring Unavailable NAUMOFF, EL DORADO Primary Care Unavailable Lavern Angeles Attending Unavailable NAUMOFF, GAVI Referring Unavailable NAUMOFF, EL DORADO Primary Care Unavailable Lavern Angeles Attending Unavailable Lavern Angeles Referring Unavailable NAUMOFF, GAVI Primary Care Unavailable Lavern Angeles Attending Unavailable Lavern Angeles Referring Unavailable NAUMOFF, GAVI Primary Care Unavailable Lulu Avelar Attending Unavailable Lulu Avelar Referring Unavailable NAUMOFF, EL DORADO Primary Care Unavailable Lavern Angeles Attending Unavailable Lavern Angeles Referring Unavailable NAUMOFF, EL DORADO Primary Care Unavailable Lavern Angeles Consulting Unavailable Lavern Angeles Attending Unavailable Lavern Angeles Referring Unavailable NAUMOFF, EL DORADO Primary Care Unavailable Lavern Angeles Consulting Unavailable Lavern Angeles Attending Unavailable NAUMOFF, GAVI Referring Unavailable NAUMOFF, GAVI Primary Care Unavailable Saul Kwan Attending Unavailable Lavern Angeles Referring Unavailable Marysol Dunn Attending Unavailable Marysol Dunn Referring Unavailable JEFFERSON, GAVI Primary Care Unavailable Lavern Angeles Attending Unavailable CHUCKUMGAVI CUEVAS Referring Unavailable NAUMOFF, GAVI Primary Care Unavailable JEFFERSON, GAVI Primary Care Unavailable Lillie Gabrielo Attending Unavailable PROBLEMS PROBLEMS DATE TYPE CONDITION / CODE ATTENDING STATUS SOURCE 12/03/2018 Unknown 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, Active [place] Unspecified fracture Lulu [facility] right humerus, Repository subsequent encounter for fracture with routine healing / S42.201D(ICD-10) 10/30/2018 Unknown M25.519 - Pain in Chicorelli, Active [place] unspecified shoulder [facility] / M25.519(ICD-10) Hospital Repository 10/21/2018 Unknown S42.201A - Gabriel, Apolinar Active [place] Unspecified fracture [facility] right humerus, Repository initial encounter for closed fracture / S42.201A(ICD-10) 06/19/2018 Unknown N32.89 - Other Marysol Dunn Active [place] specified disorders [facility] bladder / Hospital N32.89(ICD-10) Repository 05/15/2018 Unknown N93.9 - Abnormal Marcanthony, Active [place] uterine and vaginal [facility] bleeding, Hospital unspecified / Repository N93.9(ICD-10) 05/15/2018 Unknown R10.2 - Pelvic and Marcanthony, Active [place] perineal pain / [facility] R10.2(ICD-10) Hospital Repository 05/04/2018 Unknown G89.18 - Other acute Marcanthony, Active [place] postprocedural pain [facility] / G89.18(ICD-10) Hospital Repository 05/24/2018 Unknown Z01.810 - Encounter Saul Kwan Active [place] for preprocedural Community [facility] examination / Repository Z01.810(ICD-10) 02/05/2018 Unknown N94.6 - Marcanthony, Active [place] Dysmenorrhea, [facility] unspecified / Hospital N94.6(ICD-10) Repository 02/05/2018 Unknown M54.5 - Low back Marcanthony, Active [place] pain / M54.5(ICD-10) [facility] Repository PROCEDURES PROCEDURES No Procedure Records FoundRESULTS RESULTS ORTHOPEDIC VISIT Observed: 11/08/2018 Status: F Source: [facility] REPORT 3:51 PM [facility] REPOSITORY [facility] [address] [place] [address] OFFICE VISIT Date of Service: 10/30/18 MR#: [id number] Acct: [id number] Name: KIMBERLY PASCUAL Rep #: [id number] : 1970 Provider: Lulu Avelar DO Age/Sex: 48/F Location[place] [facility] [place] Status: Signed Intake Vital Signs10/30/18 Body Mass Index (BMI) 41.5 Intake Visit Reasons: RIGHT SHOULDER Is patient in pain?: Yes Pain scale (1-10): 2 Allergies adhesive tape Allergy (Verified 10/21/18 11:01) Rash PFSH Surgical History S/P laparoscopic assisted vaginal hysterectomy (LAVH) (Acute) S/P dilation and curettage (Resolved) uterine ablation (Resolved) Family History Mother Diabetes Father Diabetes Cancer of kidney Prostate cancer Grandmother Diabetes Heart disease Lung cancer Grandfather Diabetes Heart disease Pancreatic cancer Social History Smoking Status: Never smoker alcohol intake: current details: occasionally substance use type: does not use caffeine: Yes what type of physical activity do you participate in: walking, bicycling frequency: 3-4 times per week duration: 15-30 minutes/day seatbelt use: always do you feel safe at home: Yes additional social history: -[employer] 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 HPI RIGHT SHOULDER: Details: KMIBERLY PASCUAL is a 48 year old F here today for an evaluation of rt shoulder injury. Pt reports falling on ice 10/20. C/o swelling, pain, limited movement, and stiffness. Has been wearing sling has been taking hydrocodone-acetaminophen for pain, icing. Pt mention it is most difficult for her to lift arm up towards head c/o zapping sensation in medial upper arm. ROS Musc Reports joint swelling, Reports joint pain, Reports limited joint movement, Reports stiffness Ortho Exam Right Shoulder Skin/Wound: Yes CDI Contralateral Normal: Yes Testing: Negative AROM-Forward Elevation 0-180 or AROM-External Rotation at side 0-60 SHOULDER: patient in sling , secondary survey negative, rad/uln/med/ax nerves intact, nttp at elbow/ neck Assessment AND Plan 1. Other closed nondisplaced fracture of proximal end of right humerus, initial encounter S48.392N Plan X-rays were reviewed. There is no change in fracture noted. Instructed to remain in the sling but gave PT script to begin PROM for next month. She can remove the sling for elbow rom actively and for work and typing. Follow up in a month for repeat xrays or sooner if pain, swelling, numbness or associated symptoms, or concerns develop. All questions answered. Patient in agreement of plan. Plan Detail Other Orders Orders: Coding Level of Care Code Off vis,new,level 3 Diagnoses Other closed nondisplaced fracture of proximal end of right humerus, initial encounter S43.120M Encounter type: initial encounter Fracture alignment: nondisplaced Fracture morphology: other fracture 11/08/18 1551 <Electronically signed by Lulu Avelar DO> Date Lulu Avelar DO Cosigner Signature: Date (if applicable) CC: INITAL EVALUATION (1) Observed: 10/31/2018 Status: F Source: [place] Rodriguez PT 12:49 PM [facility] REPOSITORY [facility] [place] [address] Fax REHABILITATION SERVICES INITIAL EVALUATION MR#: [id number] Acct: [id number] Name: SAMARAKIMBERLY Chavez Rep #: [id number] : 1970 48 From: Fidencio Costa PT, ATC Referring Dr.: Lulu Avelar DO Status: REG RCR Insurance: [employer] SELF [employer]Y INSURANCE Patient's Visit Information KIMBERLY Scott PASCUAL is a 48 year old F referred to Physical Therapy by Lulu Chicorelli, DO with a diagnosis of R humeral Fx. Date of Evaluation: 10/31/18 Physical Therapist: Fidencio Costa, PT, ATC - Visit Plan Frequency: 2-3x /Week Duration: 4-6 Weeks Plan: PROM, progress as kelly - Subjective Findings: Pt reports she fell on the ice approximately one week ago. Pt hit R shoulder on her steps. Pt reports she went to the ER which xrayed her R shoulder and said she fractured her R humerus. Pt reports she was placed in a sling, but notes she was told sh didnt have to wear thw sling if she didnt want to. Pt reports her R shoulder is much improved over the past week. Pt is no having any sleep difficulty. 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 0/10 pain at rest, 3/10 at worst. Pt reports sig difficulty with any reaching activity or overhead movments. - Pain R shoulder Pain Intensity (Out of 10): 0 Pain Intensity Range: 3 - Objective Neuro: B UE sensation is WNL to light touch. B bicepital reflex= 2/3. Palpation: SORE ON lateral R shoulder. No obvious deformity present at this time. ROM: L shoulder flex= 170, abd= 170, ER= 45, IR WNL; R shoulder flex= 35, abd= 40. MMT: L shoulder is 5/5 throughout. R shoulder 2-/5 and painful - Goals Goal 1:: Decrease R shoulder pain x 50% to aid with sleep Goal Time Frame: 4-6 Weeks Goal 2:: Increase R shoulder strength x 1 grade to aid with IADL's Goal Time Frame: 4-6 Weeks Goal 3:: Increase R shoulder ROM x 50 degrees to aid with overhead lifting Goal Time Frame: 4-6 Weeks Goal 4:: I with HEP Goal Time Frame: 4-6 Weeks - Rehabilitation Potential Physical Therapy Diagnosis: R shoulder pain, weakness, and decreased ROM secondary to R humeral fx Rehabilitation Potential: Good - Anticipated Interventions Patient/Client Instruction: Educate patient on: Condition, Plan of Care For the Purpose of:: To improve self management Therapeutic Exercise to Include: Strength training, Endurance training, Flexibilty training, Passive ROM, Active ROM For the Purpose of:: To decrease pain, To increase ROM, To improve muscle performance and motor function Cryotherapy (ice pack, ice massage): Yes For the Purpose of:: To decrease pain Thank you for the opportunity to evaluate your patient. For Medicare and Medicare HMO plans, please review the plan of care and approve it. It will need to be FAXED BACK to us at [phone] for Medicare purposes. For Medicare only, by signing this I certify the plan of care. Please let me know if there are questions or concerns regarding this plan of care. Physician Signature: Date: <Electronically signed by Fidencio Costa PT, ATC> 10/31/18 1249 CC: Gavi Garrison MD; Lulu Avelar DO [facility] Signed SHOULDER MIN 2 VIEWS Observed: 10/30/2018 Status: F Source: [facility] 9:43 AM [facility] REPOSITORY [facility] Imaging Services [address] [place] [address] Shoulder min 2 Views MR#: [id number] Acct: [id number] Name: KIMBERLY PASCUAL Rep #: [id number] : 1970 F 48 From: Ángel Julian MD PCP: Gavi Garrison MD Status: REG CLI Study: Shoulder min 2 Views Date of Exam: 10/30/18 Exam# [id number] Ordering Dr: Lulu Avelar DO STUDY: X-RAY - RIGHT SHOULDER REASON FOR EXAM: Pain. TECHNIQUE: 3 view(s) of the shoulder. COMPARISON: Radiographs 10/21/2018. FINDINGS: Normal glenohumeral articulation. There is joint space narrowing of the acromioclavicular joint. Normal acromion. There is a nondisplaced fracture of the greater tuberosity. The soft tissue structures are unremarkable. Normal visualized pulmonary apex. RAD/Shoulder min 2 Views IMPRESSION: Greater tuberosity fracture without interval change. Acromioclavicular arthrosis. Electronically Signed: Ángel Julian MD at 15:22 EST Tel , Service support , CC: Gavi Garrison MD; Lulu Avelar DO [employer] Commanding Officer: Signed EMERGENCY DEPARTMENT Observed: 10/21/2018 Status: F Source: [facility] SUMMARY 11:46 AM [facility] REPOSITORY [facility] Medical Records Department [address] [place] [address] Emergency Department Summary 10/21/18 1141 MR#: [id number] Acct: [id number] Name: KIMBERLY PASCUAL Rep #: [id number] : 1970 48 From: Apolinar Gabriel MD PCP: Gavi Garrison MD Status: REG ER - ER Visit Summary Date of Service: 10/21/18 Chief Complaint: Right shoulder pain status post fall. History of Present Illness: The patient is a 48 F who is right- hand dominant. She slipped on the ice yesterday. She landed on her right upper extremity. She complains of pain in the right shoulder. She also has minimal pain right elbow. She denied head trauma. No neck pain. Denies paresthesia, anesthesia or motor weakness present at time of the injury. She denies cardiac respiratory symptoms. She is on no anticoagulant. Physical Examination: Patient will not move her right upper extremity. Vital signs noted and blood pressure is elevated at 160/93. HEENT exam is unremarkable with no evidence of trauma. No cervical spine tenderness and cleared per Nexus criteria. Lungs are clear to auscultation. Heart is regular without murmur, gallop or rub. There is pain palpation over the proximal humerus. Is no pain the patient over the clavicle or AC joint. There is little discomfort over the lateral epicondyle. Is no pain the patient over the medial epicondyle or olecranon process. There is no pain the patient was radial head with supination pronation. There is no pain the patient with distal radius ulna. No pain the patient with carpal bones, metacarpal bones or phalanges. Axillary, median, radial and ulnar function intact. Radial pulses palpable and symmetric. Test Results: Three-view x-ray of the right shoulder reveals a nondisplaced proximal humeral fracture involving the greater tuberosity. Emergency Department Course and Treatment: X-ray was obtained. Differential is fracture versus rotator cuff injury versus both Treatment Plan: Sling and swath and follow up with orthopedic funeral professional Disposition: Discharged home in stable condition with spouse Impression: Nondisplaced proximal humeral fracture right This note was generated with [employer] dictation software. It may contain incorrect words, spelling, and punctuation that were not noted in review of the chart prior to signing ED Disposition - Plan for ED Patient: Disposition: Home or Assisted Living Chief Complaint: Upper Extremity Injury Instructions: ED Fx Shoulder Prescriptions: Hydrocodone Bitart/Apap 5-325 [Wayne 5MG-325MG] 1 tablet PO Q6H PRN PRN 3 Days #10 tablet PRN Reason: Pain Referrals: Gavi Garrison MD [Primary Care Provider] - Lulu Avelar DO [STAFF PHYSICIAN] - 5-7 Days Additional Instructions: Your your prescription was electronically transmitted to [facility] pharmacy on [facility]. What to do if you have Problems For any increased pain, shortness of breath, bleeding, nausea or vomiting, chest pain, or any unexpected problems, contact your Primary Care Provider. Call [facility] ([phone]) or report to the closest Emergency Room. Call 911 if necessary. 10/21/18 1146 <Electronically signed by Apolinar Gabriel MD> Date Apolinar Gabriel MD Cosigner Signature (If Indicated): Date CC: Gavi Garrison MD; Lulu Avelar DO SHOULDER MIN 2 VIEWS Observed: 10/21/2018 Status: F Source: [place] 11:16 AM [facility] REPOSITORY [facility] Imaging Services [address] [place] [address] Shoulder min 2 Views MR#: [id number] Acct: [id number] Name: KIMBERLY PASCUAL Rep #: [id number] : 1970 F 48 From: Joshua Crews DO PCP: Gavi Garrison MD Status: DEP ER Study: Shoulder min 2 Views Date of Exam: 10/21/18 Exam# [id number] Ordering Dr: Apolinar Gabriel MD STUDY: X-RAY - RIGHT SHOULDER REASON FOR EXAM: Female, 48 years old. Status post fall TECHNIQUE: 4 view(s) of the shoulder. COMPARISON: None. FINDINGS: Nondisplaced mildly comminuted fracture through the humeral head. Remainder is within normal limits RAD/Shoulder min 2 Views IMPRESSION: Nondisplaced and mildly comminuted right humeral head fracture without displacement Electronically Signed: Joshua Crews DO at 12:00 EST Tel , Service support , CC: Gavi Garrison MD; Apolinar Gabriel MD Homicide Squad Commanding Officer: Signed OPERATIVE REPORT Observed: 06/19/2018 Status: F Source: [facility] 12:26 PM [facility] REPOSITORY [facility] Medical Records Department [address] [place] [address] Operative Report 06/19/18 1223 MR#: [id number] Acct: [id number] Name: KIMBERLY PASCUAL Rep #: [id number] : 1970 47 From: Marysol Dunn MD PCP: Gavi Garrison MD Status: REG [facility] Location: [place] [address] Problem List (1) Bladder mass Status: Acute Report of Operation Date of Procedure: 06/19/18 Pre-Operative Diagnosis: Bladder mass Post-Operative Diagnosis: same Surgery/Procedure Performed:: cystoscopy, transurethral resection bladder tumor, small Description of Surgical Findings:: 1cm mass and deep sample removed. hemostasis achieved. no other lesion identified. no complication. repair cameraman: Marysol Dunn Type of Anesthesia:: General Special Medications: ancef Specimen's removed: bladder mass Estimated Blood Loss (mL): 2cc Description of Procedure: The patient is a 47-year-old female that had a hysterectomy with a cystoscopy at the conclusion of the case approximately 5 weeks ago. At that time a 0.5 cm bladder lesion was identified and the patient was sent to me in the office. She presents today for resection of the tissue. All risks benefits and alternatives were discussed in the office and she agreed to proceed. Patient was taken to the operating room and placed on the operating room table. Anesthesia monitored the head neck area IV access and vital signs throughout the case. Once anesthesia was appropriately administered the patient was placed into dorsal lithotomy position was prepped and draped in usual sterile fashion. Using a 30 lens a cystoscopy was performed and no other lesions were identified. The lesion in question was located on the trigone and was approximately 1 cm in size, enlarged and more papillary in nature than visualized on the previous photograph. It was in the middle of the trigone approximately 0.5 cm proximal to the bladder neck. The area was resected using the resectoscope and hemostasis was achieved using the resectoscope as well. There were no complications during the procedure. The patient's bladder was emptied and the specimen was sent for evaluation and pathology. The patient was awakened and taken to the recovery room in good condition. 06/19/18 1226 <Electronically signed by Marysol Dunn MD> Date Marysol Dunn MD CC: Gavi Garrison MD; Marysol Dunn MD Signed MASS (DEFINE AREA) Observed: 06/19/2018 Status: F Source: [place] 12:10 PM [facility] REPOSITORY Patient: KIMBERLY PASCUAL : 1970 (47/F) Acct Num: [id number] Phys: Marysol Dunn MD Unit Num: [id number] Loc: [facility] [place] Specimen: [id number] Received: 06/19/18 - 1228 Spec Type: Mass TISSUES TISSUES: Urinary bladder, NOS COMMENT Cautery artifacts are noted in both pieces. Detrusor muscle is not seen in the submitted specimen. Immunohistochemistry ([id number]) supports the above diagnosis. Case has been reviewed in consultation with Dr. Mejía who concurs with the above diagnosis. IDC:AM GROSS DESCRIPTION Received in fixative is one container labeled with the patient's name and designated bladder mass. The specimen consists of two pieces of nuñez-pink soft tissue measuring in aggregate 0.7 x 0.5 x 0.2 cm. The specimen is totally submitted in one cassette. / SJ:bernard 06/19/18 TC:3 CPT: 30892 HEADER OPERATION: TUR bladder, Olympus PRE-OP DIAGNOSIS: Bladder mass TISSUE SUBMITTED: Bladder mass MICROSCOPIC DESCRIPTION Slides are reviewed. MICROSCOPIC DIAGNOSIS Bladder mass, biopsy: A piece of urothelial mucosa with chronic inflammation and changes consistent with cystitis cystica glandularis. Fragments of squamous mucosa with cautery artifact, no pathologic diagnosis. Negative for malignancy. See comment. SJ:bernard 06/20/18 Signed Lang Duong 06/21/18 <signature on file> Performed By: #### PMASS #### [facility] [address] [facility] [facility] [place], [address] DISCHARGE INSTRUCTION Observed: 06/19/2018 Status: F Source: [facility] 11:28 AM [facility] REPOSITORY [facility] Medical Records Department [address] [place] [address] Instructions for Home/Discharge Instructions 06/19/18 1126 MR#: [id number] Acct: [id number] Name: KIMBERLY PASCUAL Rep #: [id number] : 1970 47 From: Marysol Dunn MD PCP: Gavi Garrison MD Status: REG [facility] [place] Discharge Diet: No Restrictions Discharge Activity: May not drive while taking narcotic pain medications. May resume sexual activity in: 2 weeks Call your doctor if you observe: Fever of 101 or Higher, Inability to urinate, Inability to have a bowel movement, Shortness of breath, Chest pain, Calf discomfort, Uncontrolled pain Allergies/Adverse Reactions: Allergies adhesive tape Allergy (Verified 06/08/18 09:06) Rash Medications to take at Discharge Cephalexin [Keflex] 500 mg PO Q12 3 Days #6 cap 06/19/18 The following prescriptions were given: Cephalexin [Keflex] 500 mg PO Q12 3 Days #6 cap Primary Care Physician: Gavi Garrison MD [Primary Care Provider] - Test Results: Test results from this visit will be discussed in further detail at your follow-up appointment, if applicable. Please Follow Up With: Marysol Dunn MD - 1 week 06/19/18 1128 <Electronically signed by Marysol Dunn MD> Date Marysol Dunn MD CC: Gavi Garrison MD IMMUNOHISTOCHEMISTRY Observed: 06/19/2018 Status: F Source: [facility] 12:00 [facility] [place] [place] Patient: KIMBERLY PASCUAL : 1970 (47/F) Acct Num: [id number] Phys: Marysol Dunn MD Unit Num: [id number] Loc: [facility] [place] Specimen: [id number] Received: 06/20/18 - 1242 Spec Type: IMMUNO TISSUES TISSUES: Urinary bladder, NOS SPECIMEN INFORMATION: Tissue Source: Bladder mass Clinical Info: Bladder mass Specimen Number: [id number] CPT code: 67970, 24266 x2 METHODOLOGY: Deparaffinized sections of prefer/formalin-fixed tissue or PAP/DQ stained slides are incubated with monoclonal/polyclonal antibodies/oligonucleotide probes. Localization is made via biotin free immunoperoxidase method. Appropriate controls are performed and reacted as expected. Results on target cell population are indicated in the following table: RESULTS: ANTIBODY / CLONE RESULT CK7 (OV-TL12/30) positive CK20 (KS20.8) negative P53 (DO-7) negative These tests were developed and their performance characteristics determined by [facility]. They may not have been cleared or approved by the U.S. Food and Drug Administration. The FDA has determined that such clearance or approval is not necessary. INTERPRETATION: Bladder mass: Negative for malignancy. SJ:bernard 06/21/18 Case has been reviewed in consultation with Dr. Mejía who concurs with the above diagnosis. IDC:AM PHYSICIAN AND INSTITUTION [facility] [address] [place], [place] [address] Signed Lang Duong 06/21/18 <signature on file> Performed By: #### PIMM #### [facility] [address] [place] [address]. [place], [address] URINALYSIS, COMPLETE Collected: 06/18/2018 Status: F Source: [facility] 12:55 PM [facility] REPOSITORY Order Comment: How was Urine Obtained? CLEAN CATCH TYPE CODE TESTS RESULT OUT OF RANGE REFERENCE UNITS LAB L400.3000 Yellow COLOR Normal Yellow LAB L400.3050 Clear Normal CLARITY Sl. Cloudy LAB L400.3200 Normal mg/dl Normal GLUCOSE, UR Normal LAB L400.3300 Negative mg/dL Normal BILIRUBIN URINE Negative LAB L400.3400 Negative mg/dl Normal KETONE UR Negative LAB L400.3465 1.002-1.030 Normal SP.GR. DIPSTX 1.010 LAB L400.3550 5.0 - 8.0 pH UR Normal 6.0 LAB L400.3600 Negative mg/dl PROT Normal DIPSTX Negative LAB L400.3700 Normal mg/dl Normal UROBILI Normal LAB L400.3750 Negative Normal NITRITE UR Negative LAB L400.3780 Negative /ul High 10 OCCULT BLOOD-UR LAB L400.3800 Negative /ul LEUK Normal ESTERASE Negative LAB L400.4050 0-5 /hpf WBC 0 Normal SEEN LAB L400.4100 0-5 /hpf 0 Normal RBC-UA SEEN LAB L400.4150 5-10 /hpf SQUAM Normal EPI 0-5 SEEN LAB L400.4300 None Seen /hpf Normal BACTERIA RARE LAB L400.4350 <or=2+ /hpf 0 Normal MUCUS, URINE SEEN Performed By: #### L400.0001 #### [facility] [address] [place], [address] CBC-COMPLETE BLOOD CNT Collected: 06/08/2018 Status: F Source: [facility] NO DIFF 12:42 PM [facility] REPOSITORY TYPE CODE TESTS RESULT OUT OF RANGE REFERENCE UNITS LAB L100.1000 4.4-11.0 K/mm3 Normal WBC 7.0 LAB L100.1200 4.2-5.4 M/mm3 Normal RBC 4.42 LAB L100.1300 12.0-15.0 g/dl Normal HGB 13.6 LAB L100.1400 37-47 % Normal HCT 41.1 LAB L100.1500 81-99 fL Normal MCV 93.0 LAB L100.1600 27.0-32.0 pg Normal MCH 30.8 LAB L100.1700 32-36 g/gl Normal MCHC 33.1 LAB L100.1810 11.6-14.6 % Normal RDW CV 12.6 LAB L100.1820 35.1-43.9 fl Normal RDW SD 42.5 LAB L100.1900 150-450 K/mm3 Normal PLT 294 LAB L100.2000 6.2-12.0 fl Normal MPV 10.1 Performed By: #### L100.0500 #### [facility] [address] [place], [address] 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 [place] [address] OFFICE VISIT Date of Service: 06/07/18 MR#: [id number] Acct: [id number] Name: KIMBERLY PASCUAL Rep #: [id number] : 1970 Provider: Lavern Angeles MD Age/Sex: 47/F [place] [facility] [place]: Signed Intake Vital Signs06/07/18 Height 5 ft 6 in 06/07/18 Weight: 239 lb 06/07/18 Body Mass Index (BMI) 38.5 06/07/18 Blood Pressure 144/94 Intake Visit Reasons: 6 WEEK POST OP Guest Services Manager Required: No Is patient in pain?: No Allergies No Known Allergies Allergy (Verified 06/07/18 11:52) Medications NK [NK] 06/07/18 [History Confirmed 06/07/18] Is last menstrual period known: No Patient : No : No PFSH Surgical History S/P laparoscopic assisted vaginal hysterectomy (LAVH) (Acute) S/P dilation and curettage (Resolved) uterine ablation (Resolved) Family History Mother Diabetes Father Diabetes Cancer of kidney Prostate cancer Grandmother Diabetes Heart disease Lung cancer Grandfather Diabetes Heart disease Pancreatic cancer Social History Smoking Status: Never smoker alcohol intake: current details: occasionally substance use type: does not use caffeine: Yes what type of physical activity do you participate in: walking, bicycling frequency: 3-4 times per week duration: 15-30 minutes/day seatbelt use: always do you feel safe at home: Yes additional social history: -[employer] 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 Pregancy History 2 Elective abortions Hx Para 2 Spontaneous abortions Past Pregnancies Del. DatName GA/WeeksOutcome Route [facility] LocaProviderFOB e ht en ia tn Unknown Arianne-29 Unknown Be-21 ROS Const Constitutional: Reports system reviewed and no additional complaints, except as docu GI GI: Denies abdominal pain, nausea, vomiting or cramping : Denies urinary frequency, vaginal dryness, vaginal discharge, urinary urgency, urinary incontinence, vaginal odor or pelvic pain Exam Const General: cooperative, healthy appearing, comfortable, no acute distress External Female Exam: normal external appearance, normal appearance of the urethra Urethra: normal appearance of the urethra Speculum Exam - Vagina: normal appearance of the vagina, other (normal vaginal length, apex well supprted and healed, intact no granulation) Speculum Exam - Cervix: cervix absent Bimanual Exam- Vagina AND Uterus: uterus absent Bimanual Exam- Adnexa, other: adnexae non-tender, pelvic support normal Pelvic Support: normal Other: vaginal cuff normal and intact, good vaginal length, no granulation tissue present Assessment AND Plan Problems 1. Encounter for postoperative care Z48.89 Plan routine care doing well Coding Level of Care Code No Charge Diagnoses Encounter for postoperative care Z48.89 06/07/18 1321 <Electronically signed by Lavern Angeles MD> Date Lavern Angeles MD Cosigner Signature: Date (if applicable) CC: BILLIARD TABLE ASSEMBLER OFFICE VISIT Observed: 05/15/2018 Status: F Source: [facility] RE[facility] 2:21 PM [facility] [address] [place] [address] OFFICE VISIT Date of Service: 05/15/18 MR#: [id number] Acct: [id number] Name: KIMBERLY PASCUAL Rep #: [id number] : 1970 Provider: Lavern Angeles MD Age/Sex: 47/F Location[place] [facility] [place] Status: Signed Intake Vital Signs05/15/18 Height 5 ft 6 in 05/15/18 Weight: 238 lb 05/15/18 Body Mass Index (BMI) 38.4 05/15/18 Blood Pressure 137/84 Intake Visit Reasons: 2 WEEK POST OP Is patient in pain?: No Allergies No Known Allergies Allergy (Verified 05/15/18 14:01) Medications Naproxen [Naprosyn] 250 - 500 mg PO Q8H PRN PRN #30 tab 05/04/18 [Rx] Is last menstrual period known: No Post menopausal: No Patient : No : No PFSH Surgical History S/P laparoscopic assisted vaginal hysterectomy (LAVH) (Acute) S/P dilation and curettage (Resolved) uterine ablation (Resolved) Family History Mother Diabetes Father Diabetes Cancer of kidney Prostate cancer Grandmother Diabetes Heart disease Lung cancer Grandfather Diabetes Heart disease Pancreatic cancer Social History Smoking Status: Never smoker alcohol intake: current details: occasionally substance use type: does not use caffeine: Yes what type of physical activity do you participate in: walking, bicycling frequency: 3-4 times per week duration: 15-30 minutes/day seatbelt use: always do you feel safe at home: Yes additional social history: -[employer] 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 Pregancy History 2 Elective abortions Hx Para 2 Spontaneous abortions Past Pregnancies Del. DatName GA/WeeksOutcome [facility] LocaProviderFOB e ht en ia tn Unknown Arianne-29 Unknown Be-21 ROS Const Constitutional: Reports system reviewed and no additional complaints, except as docu GI GI: Denies abdominal pain, nausea, vomiting or cramping : Denies urinary frequency, vaginal dryness, vaginal discharge, urinary urgency, urinary incontinence, vaginal odor or pelvic pain Exam Const General: cooperative, healthy appearing, comfortable, no acute distress GI Inspection: normal to inspection Palpation: soft, nontender Other: Incisions: C/D/I Assessment AND Plan Problems 1. Abnormal uterine bleeding N93.9 2. Pelvic pain R10.2 Plan routine care doing well Coding Level of Care Code No Charge Diagnoses Abnormal uterine bleeding N93.9 Pelvic pain R10.2 05/15/18 1421 <Electronically signed by Lavern Angeles MD> Date Lavern Angeles MD Cosigner Signature: Date (if applicable) CC: DISCHARGE INSTRUCTION Observed: 05/04/2018 Status: F Source: [facility] 9:32 AM [facility] REPOSITORY [facility] Medical Records Department [address] [place] [address] Instructions for Home/Discharge Instructions 05/04/18 0931 MR#: [id number] Acct: [id number] Name: KIMBERLY PASCUAL Rep #: [id number] : 1970 47 From: Lavern Angeles MD PCP: Gavi Garrison MD [place] [facility] [place] Diet: No Restrictions Discharge Activity: Return to Normal Activity, May Not Drive, May Shower May resume sexual activity in: 6-8 weeks Call your doctor if your incision/area has: Continuous Slow Oozing, Sudden Increased Bleeding, Increased Pain/ Swelling, Increased Redness, Foul Smelling Discharge Call your doctor if you observe: Fever of 101 or Higher, Inability to urinate, Inability to have a bowel movement, Using more than one pad per hour Allergies/Adverse Reactions: Allergies No Known Allergies Allergy (Verified 04/13/18 10:11) Medications to take at Discharge Naproxen [Naprosyn] 250 - 500 mg PO Q8H PRN PRN #30 tab 05/04/18 Oxycodone HCl/Acetaminophen [Percocet 5-325] 1 - 2 tablet PO Q4H PRN PRN 7 Days #28 tablet 05/04/18 The following prescriptions were given: Oxycodone HCl/Acetaminophen [Percocet 5-325] 1 - 2 tablet PO Q4H PRN PRN 7 Days #28 tablet PRN Reason: Moderate-Severe pain Naproxen [Naprosyn] 250 - 500 mg PO Q8H PRN PRN #30 tab PRN Reason: MILD PAIN Primary Care Physician: Gavi Garrison MD [Primary Care Provider] - Please Follow Up With: Lavern Angeles MD - [phone] 05/04/18 0932 <Electronically signed by Lavern Angeles MD> Date Lavern Angeles MD CC: Gavi Garrison MD CBC-COMPLETE BLOOD CNT Collected: 05/04/2018 Status: F Source: [facility] NO DIFF 5:12 AM [facility] REPOSITORY TYPE CODE TESTS RESULT OUT OF RANGE REFERENCE UNITS LAB L100.1000 4.4-11.0 K/mm3 High WBC 13.8 LAB L100.1200 4.2-5.4 M/mm3 Low RBC 3.79 LAB L100.1300 12.0-15.0 g/dl Low HGB 11.7 LAB L100.1400 37-47 % Low HCT 34.9 LAB L100.1500 81-99 fL Normal MCV 92.1 LAB L100.1600 27.0-32.0 pg Normal MCH 30.9 LAB L100.1700 32-36 g/gl Normal MCHC 33.5 LAB L100.1810 11.6-14.6 % Normal RDW CV 12.7 LAB L100.1820 35.1-43.9 fl Normal RDW SD 42.8 LAB L100.1900 150-450 K/mm3 Normal PLT 278 LAB L100.2000 6.2-12.0 fl Normal MPV 10.4 Performed By: #### L100.0500 #### [facility] [address] [facility] [place], [address] OPERATIVE REPORT Observed: 05/03/2018 Status: F Source: [facility] 11:27 AM [facility] REPOSITORY [facility] Medical Records Department [address] [place] [address] Operative Report 05/03/18 0729 MR#: [id number] Acct: [id number] Name: KIMBERLY PASCUAL Rep #: [id number] : 1970 47 From: Lavern Angeles MD PCP: Gavi Garrison MD Status: [facility] Location: SC3 [id number] ADDENDUM by Lavern Angeles MD on 05/03/18 at 1127 Code Visit addendum- there was a 1-2 cm exophytic lesion noted at the base of the bladder on the trigone near the right side, hemostatic. pictures taken and recommend evaluation by urologist as OP 05/03/18 1127 <Electronically signed by Lavern Angeles MD> Date Lavern Angeles MD cc: Gavi Garrison MD; Lavern Angeles MD * Signed Problem List (1) Abnormal uterine bleeding Status: Acute (2) Pelvic pain Status: Acute Report of Operation Date of Procedure: 05/03/18 Pre-Operative Diagnosis: pelvic pain AUB dysmenorrhea Post-Operative Diagnosis: Same Surgery/Procedure Performed:: lavh bs cystosocpy Description of Surgical Findings:: Enlarged uterus normal bilateral fallopian tubes and ovaries repair cameraman: Germaine Kearns Type of Anesthesia:: General Special Medications: None Specimen's removed: uterus tubes Drains: silvestre Estimated Blood Loss (mL): 100 Fluids Replaced: crystalloid Description of Procedure: Patient received preoperative antibiotics and SCDs were on preoperatively. Patient was taken back to the operating room and placed in the dorsal lithotomy position. General anesthesia was induced and patient was prepped and draped in normal sterile fashion. Uterine manipulator was placed inside the uterus and Silvestre catheter placed in the bladder. The umbilicus was grasped with towel clamps and an intraumbilical incision was made after injecting with quarter percent Marcaine and a Veress needle entered into the abdomen confirmed to be intra-abdominal with a low opening pressure. Abdomen was insufflated with CO2 gas and the Veress needle removed and the 5 mm trocar was placed under direct visualization without complication. Right and left lower quadrants were transilluminated and injected with quarter percent Marcaine and 5 mm ports placed under direct visualization. Pelvis was well visualized see operative findings for additional information. Bilateral fallopian tubes were identified and transected with the LigaSure device across the mesosalpinx to the level of the utero-ovarian ligament which was also transected with the LigaSure device. The broad ligament was opened up by transecting the round ligament bilaterally and skeletonizing the uterine vessels bilaterally and creating a bladder flap using the LigaSure device. The uterine arteries were transected bilaterally with good visualization of the bladder and the ureters were seen to be inferior lateral to the operative area. Attention was then paid to the vaginal portion of the procedure and the cervix was grasped with Nicolette clamps and circumferentially injected with dilute vasopressin. A circumferential incision was made and the vaginal mucosa was mobilized off posteriorly and the cul-de-sac entered into sharply and a longneck speculum placed. The anterior cul-de-sac was then identified and entered into sharply. The uterosacral ligaments were clamped cut and suture ligated with 0 Monocryl bilaterally followed by the cardinal ligaments which were clamped cut and suture ligated bilaterally with 0 Monocryl. The uterus serially descended and was removed without difficulty with minimal morcellation. Pelvic sidewall pedicles were checked and noted to have excellent hemostasis. The vaginal mucosa was reapproximated incorporating the posterior peritoneum. This was reapproximated using 0 Vicryl [id number] sutures. Excellent hemostasis was noted. The cystoscopy was then performed and bilateral ureteral strong spray was noted and the bladder was noted to have no abnormality or lesions seen. Silvestre catheter was replaced and then attention paid to the abdominal portion of the procedure again. The pelvis and cul-de-sac was well visualized and no significant active bleeding noted but some raw areas were seen on the peritoneum and therefore Denise was applied. Pressure was taken down and the areas visualized and noted of excellent hemostasis. All ports were removed under direct visualization without complication and the abdomen was desufflated of air. The instruments removed from the abdomen and the vagina vaginal sweep was negative. Port sites on the abdomen were closed with 4-0 Monocryl interrupted sutures and Steri's and windows were applied. She was awoken and taken recovery in stable condition. Grafts/Implants Used: none - Admit VTE Documentation VTE Present on Admission: No VTE Mechan Device Prophylaxis: SCD's 05/03/18 0853 <Electronically signed by Lavern Angeles MD> Date Lavern Angeles MD CC: Gavi Garrison MD; Lavern Angeles MD Signed HISTORY AND PHYSICAL Observed: 05/03/2018 Status: F Source: [facility] EXAM 7:29 AM [facility] REPOSITORY [facility] Medical Records Department [address] [place] [address] History and Physical 05/03/18 0726 MR#: [id number] Acct: [id number] Name: KIMBERLY PASCUAL Rep #: [id number] : 1970 47 From: Lavern Angeles MD PCP: Gavi Garrison MD Status: [facility] [place] Location: [address] - Problem List (1) Abnormal uterine bleeding Status: Acute (2) Pelvic pain Status: Acute History Date of Admission: 05/03/18 History of this : This is a 47 year-old presents with pelvic pain and AUB, failed ablation and medical management, plan laparoscopic hysterectomy Surgical History: Surgical History (Last Updated 02/05/18 @ 13:14 by Kely Jiang) S/P dilation and curettage Z98.890 x2 uterine ablation Allergies No Known Allergies Allergy (Verified 04/13/18 10:11) Home Medications: Home Medications NK [NK] 02/05/18 Smoking Status: Never smoker History Past Pregnancies: Past Pregnancies Delivery Name GA/Weeks Outcome Route WeiInfant GeLabor LenAnesthesiDelivery Provider FOB Date ght nder h a Location Review of Systems Constitutional: Denies: Fever, Malaise Eyes: Denies: Blurred vision, Vision Change HEENT: Denies: Head Aches, Visual Changes Cardiovascular: Denies: Chest Pain, Palpitations Respiratory: Denies: Cough, Shortness of Breath, Wheezing Gastrointestinal: Denies: Abdominal Pain, Diarrhea, Nausea, Vomiting Genitourinary: Denies: Dysuria, Hematuria Musculoskeletal: Denies: Joint Pain, Muscle pain Skin: Denies: Lesions, Rash Neurological: Denies: Blurred vision, Focal weakness, Headaches Psychiatric: Denies: Anxiety, Depression Endocrine: Denies: Heat/ Cold Intolerance Hematologic/ Lymphatic: Denies: Easy Bruising, Easy Bleeding Physical Exam Vitals: Vital Signs Temp Pulse Resp BP Pulse Ox 98.6 F 77 18 123/57 H 100 05/03/18 06:39 05/03/18 06:39 05/03/18 06:39 05/03/18 06:39 05/03/18 06:39 General: Alert, Cooperative, No apparent distress HEENT: Atraumatic, Normocephalic. Negative for: Thyromegaly, Lymphadenopathy Cardiovascular: Regular rate Lungs: Normal air movement Abdomen: Soft, Non Tender Neurological: Deep Tendon Reflexes 2+/4 and Symmetrical, Neuro grossly intact. 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 Negative for: Vulvar lesions Assessment/Plan All Active Problems (Last Reviewed 02/05/18 @ 13:13 by Kely Jiang) Abnormal uterine bleeding (Acute) Pelvic pain (Acute) This is a 47 year-old, presents for [facility] BS cystosocpy discussed surgical risks including risks of anesthesia, infection, bleeding, injury to bowel, bladder or blood vessels, and patient wishes to proceed with surgery. 05/03/18 0729 <Electronically signed by Lavern Angeles MD> Date Lavern Angeles MD Cosigner Signature: Date (if applicable) CC: Gavi Garrison MD; Lavern Angeles MD Signed TYPE AND SCREEN Collected: 05/03/2018 Status: F Source: [facility] 6:32 AM [facility] REPOSITORY Order Comment: Reason for Type AND Screen/Red Cells: SURGERY TYPE CODE TESTS RESULT OUT OF RANGE REFERENCE UNITS LAB B10.0800 A Normal BLOOD TYPE GEL POSITIVE LAB B100.4000 Normal Antibody NEGATIVE Screen Performed By: #### B101.7450 #### [facility] [address] [facility] [place], [place], [address] ,URINE Collected: 05/03/2018 Status: F Source: [facility] 6:26 AM [facility] REPOSITORY TYPE CODE TESTS RESULT OUT OF REFERENCE UNITS RANGE LAB L400.8000 Negative Normal HCGUQUAL Negative Result Comment: Very dilute urine specimens, as indicated by a low specific gravity, may not contain outside medical sales representative levels of hCG. If is still suspected, a first morning urine specimen should be collected 48 hours later and tested. Performed By: #### L400.7600 #### [facility] [address] [facility] [place], [address] HYSTERECTOMY SPECIMEN Observed: 05/03/2018 Status: F Source: [facility] 12:00 AM [facility] REPOSITORY Patient: KIMBERLY PASCUAL : 1970 (47/F) Acct Num: [id number] Phys: Bridgette PEREZ,Lavern Unit Num: [id number] [place] [facility] [place] Specimen: [id number] Received: 05/03/181035 Spec Type: HYSTERECT TISSUES TISSUES: Uterus, NOS GROSS DESCRIPTION Received in fixative is one container labeled with the patient's name and designated uterus, bilateral fallopian tubes. The specimen consists of a hysterectomy specimen consisting of uterus with cervix and attached bilateral fallopian tubes. The uterus with cervix weighs 178 gm and measures 11 x 7 x 7 cm. The serosal surface is nuñez, glistening. The ectocervical mucosa is unremarkable. The external os is oval and patulous in contour. The endocervical canal measures 3.5 cm in length and the endocervical mucosa is without any mass lesion. Sections of cervix reveal a few cysts filled with mucoid material. The endometrial cavity is fibrotic in the proximal portion and narrow and measures 2 cm in length and 0.5 cm in width. The endometrium is nuñez, glistening and measures <0.1 cm in thickness. Sections of the uterine wall reveal multiple nodular masses. The largest mass measures 3 cm in greatest dimension. The masses are submucosal to intramural in location. Sections of these masses reveal nuñez whorled cut surfaces without areas of hemorrhage, necrosis or cystic degeneration. The uninvolved uterine wall measures up to 3 cm in thickness. The right fallopian tube measures 5.5 cm in length and up to 1 cm in width. The fimbrial end is identified. A paratubal cyst is noted measuring 1 cm in greatest dimension. The left fallopian tube is similar appearance to right and measures 6 cm in length and up to 1 cm in width. Sections of both fallopian tubes do not reveal any mass lesion. Overhead Crane Inspector sections are submitted in ten cassettes as follows: 1 - anterior cervix, 2 - posterior cervix, 3 AND 4 - anterior uterine wall, 5 AND 6 - posterior uterine wall, 7 smaller and intermediate size nodular masses, 8 largest nodular mass, 9 right fallopian tube, 10 left fallopian tube. / FLOYD:bernard 05/03/18 TC:1 CPT: 47722 HEADER OPERATION: Hysterectomy, lap assisted vaginal, salpingectomy, cysto PRE-OP DIAGNOSIS: Postablation, pelvic pain, dysmenorrhea TISSUE SUBMITTED: Uterus, bilateral fallopian tubes MICROSCOPIC DESCRIPTION Slides are reviewed. MICROSCOPIC DIAGNOSIS Uterus and bilateral fallopian tubes, vaginal hysterectomy and bilateral salpingectomy: Cervix chronic cystic cervicitis. Endometrium proliferative endometrium. Myometrium intramural and submucosal leiomyomas (largest measuring 3 cm in greatest dimension). Focal adenomyosis. Bilateral fallopian tubes - no pathologic diagnosis. SJ:bernard 05/04/18 Signed Lang Ad 05/04/18 <signature on file> Performed By: #### PHYST #### [facility] [address] [facility] [place], [place], [id number] CBC-COMPLETE BLOOD CNT Collected: 04/13/2018 Status: F Source: [facility] NO DIFF 10:39 AM [facility] REPOSITORY TYPE CODE TESTS RESULT OUT OF RANGE REFERENCE UNITS LAB L100.1000 4.4-11.0 K/mm3 Normal WBC 5.8 LAB L100.1200 4.2-5.4 M/mm3 Normal RBC 4.44 LAB L100.1300 12.0-15.0 g/dl Normal HGB 13.9 LAB L100.1400 37-47 % Normal HCT 41.3 LAB L100.1500 81-99 fL Normal MCV 93.0 LAB L100.1600 27.0-32.0 pg Normal MCH 31.3 LAB L100.1700 32-36 g/gl Normal MCHC 33.7 LAB L100.1810 11.6-14.6 % Normal RDW CV 12.5 LAB L100.1820 35.1-43.9 fl Normal RDW SD 41.7 LAB L100.1900 150-450 K/mm3 Normal PLT 289 LAB L100.2000 6.2-12.0 fl Normal MPV 10.5 Performed By: #### L100.0500 #### [facility] [address] [facility] [address] [place], [place], [address] LIVER PROFILE Collected: 04/13/2018 Status: F Source: [facility] 10:39 AM [facility] REPOSITORY TYPE CODE TESTS RESULT OUT OF RANGE REFERENCE UNITS LAB L501.1500 6.4-8.2 g/dL Normal T PROT 7.2 LAB L501.1800 3.2-5.0 g/dL Normal ALB 3.7 LAB L501.1950 2.2-4.2 g/dL Normal GLOB 3.5 LAB L501.4100 15-37 U/L Low AST 11 LAB L501.4305 45-117 U/L Normal ALK P 47 LAB L501.4405 13-56 U/L Normal ALT 22 LAB L501.4600 0.20-1.00 mg/dL Normal T BILI 0.40 LAB L501.4700 0.00-0.30 mg/dL Normal D BILI 0.10 Performed By: #### L500.3400 #### [facility] [address] [facility] [place], [address] PROTHROMBIN TIME W/INR Collected: 04/13/2018 Status: F Source: [facility] 10:39 AM [facility] REPOSITORY TYPE CODE TESTS RESULT OUT OF RANGE REFERENCE UNITS LAB L300.4150 11.7-14.9 SECONDS Normal PROTIME 13.3 LAB L300.4200 Normal INR 1.0 Performed By: #### L300.3900, L300.4310 #### [facility] [address] [facility] [place] [place], [address] PARTIAL THROMBOPLAST Collected: 04/13/2018 Status: F Source: [place] TIME 10:39 AM [facility] REPOSITORY TYPE CODE TESTS RESULT OUT OF RANGE REFERENCE UNITS LAB L300.4310 24.1-36.2 Seconds Normal PTT 28.9 Performed By: #### L300.3900, L300.4310 #### [facility] [address] [place], [address] TYPE AND SCREEN Collected: 04/13/2018 Status: F Source: [place] 10:39 AM [facility] REPOSITORY Order Comment: Surgery Date: 05/03/18 Hx of Preganancy in last 3 Months No Ever experience any problems with transfusion(s)? N Hx of Transfusion in last 3 Months N Reason for Type AND Screen/Red Cells: SURGERY SURGICAL PROCEDURE: 32452 69880 TYPE CODE TESTS RESULT OUT OF RANGE REFERENCE UNITS LAB B10.0800 A Normal BLOOD TYPE GEL POSITIVE LAB B100.4000 Normal Antibody NEGATIVE Screen Performed By: #### B101.7475 #### [facility] [address] [place], [address] PELVIC (NON ) Observed: 02/09/2018 Status: F Source: [place] 3:14 PM [facility] REPOSITORY [facility] Imaging Services [address] [place] [address] Pelvic (Non ) MR#: [id number] Acct: [id number] Name: KIMBERLY PASCUAL Rep #: [id number] : 1970 F 47 From: Poncho aLwson MD PCP: Gavi Garrison MD Status: REG CLI Study: Pelvic (Non ) Date of Exam: 02/09/18 Exam# [id number] Ordering Dr: Lavern Angeles MD STUDY: ULTRASOUND TRANSVAGINAL CLINICAL: Female, 47 years old. Pelvic pain TECHNIQUE: Transvaginal COMPARISON: None. FINDINGS: Normal uterine size measuring 10.6 x 5.5 x 5.2 cm in maximal craniocaudal dimension. Uterus is diffusely heterogeneous. There are probable poorly defined fibroids, largest is 2.4 cm greatest dimension. Normal endometrial thickness measuring 4 mm. Endometrial echoes are heterogeneous. There are no endometrial masses, and there is no fluid in the endometrial cavity. Nabothian cyst of the uterine cervix. Normal right ovary, measuring 2.6 x 1.8 x 1.8 cm. There are multiple follicles without a dominant cyst. Normal left ovary, measuring 2.2 x 2.6 x 1.1 cm. There are multiple follicles without a dominant cyst. There is no free fluid in the pelvis. A normal bladder contour is seen. Bladder volume is 4 38 mL. US/Pelvic (Non ) IMPRESSION: Heterogeneous enlarged uterus consistent with leiomyomatous change and at least one focal 2.4 cm fibroid. Electronically Signed: Poncho Lawson MD at 19:40 EDT , Service support , CC: Gavi Garrison MD; Lavern Angeles MD Homicide Squad Commanding Officer: Signed TRANSVAGINAL Observed: 02/09/2018 Status: F Source: [place] NON- 3:14 PM [facility] REPOSITORY [facility] Imaging Services [address] [place] [address] Transvaginal Non- MR#: [id number] Acct: [id number] Name: KIMBERLY PASCUAL Rep #: [id number] : 1970 F 47 From: Poncho Lawson MD PCP: Gavi Garrison MD Status: REG CLI Study: Transvaginal Non- Date of Exam: 02/09/18 Exam# [id number] Ordering Dr: Lavern Angeles MD STUDY: ULTRASOUND TRANSVAGINAL CLINICAL: Female, 47 years old. Pelvic pain TECHNIQUE: Transvaginal COMPARISON: None. FINDINGS: Normal uterine size measuring 10.6 x 5.5 x 5.2 cm in maximal craniocaudal dimension. Uterus is diffusely heterogeneous. There are probable poorly defined fibroids, largest is 2.4 cm greatest dimension. Normal endometrial thickness measuring 4 mm. Endometrial echoes are heterogeneous. There are no endometrial masses, and there is no fluid in the endometrial cavity. Nabothian cyst of the uterine cervix. Normal right ovary, measuring 2.6 x 1.8 x 1.8 cm. There are multiple follicles without a dominant cyst. Normal left ovary, measuring 2.2 x 2.6 x 1.1 cm. There are multiple follicles without a dominant cyst. There is no free fluid in the pelvis. A normal bladder contour is seen. Bladder volume is 4 38 mL. US/Transvaginal Non- IMPRESSION: Heterogeneous enlarged uterus consistent with leiomyomatous change and at least one focal 2.4 cm fibroid. 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 [place] [address] OFFICE VISIT Date of Service: 02/05/18 MR#: [id number] Acct: [id number] Name: KIMBERLY PASCUAL Rep #: [id number] : 1970 Provider: Lavern Angeles MD Age/Sex: 47/F [place] [facility] [place]: Signed Intake Vital Signs02/05/18 Height 5 ft 5 in 02/05/18 Weight: 238 lb 4 oz 02/05/18 Body Mass Index (BMI) 39.6 02/05/18 Blood Pressure 128/78 Intake Visit Reasons: Pelvic/Lower back pain Guest Services Manager Required: No Is patient in pain?: Yes Pain scale (1-10): 1 Allergies No Known Allergies Allergy (Verified 02/05/18 13:12) Medications NK [NK] 02/05/18 [History Confirmed 02/05/18] Is last menstrual period known: Yes Last Menstral Period: 02/01/18 Post menopausal: No Patient : No : No PFSH Surgical History S/P dilation and curettage (Resolved) uterine ablation (Resolved) Family History Mother Diabetes Father Diabetes Cancer of kidney Prostate cancer Grandmother Diabetes Heart disease Lung cancer Grandfather Diabetes Heart disease Pancreatic cancer Social History Smoking Status: Never smoker alcohol intake: current details: occasionally substance use type: does not use caffeine: Yes what type of physical activity do you participate in: walking, bicycling frequency: 3-4 times per week duration: 15-30 minutes/day seatbelt use: always do you feel safe at home: Yes additional social history: -[employer] 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 HPI Pelvic/Lower back pain: Details: KIMBERLY PASCUAL is a 47 year old who presents for recurrent lower pelvic pain. she has a history of recurrent BV infections and was treated with metrogel for 6 months and still has some irritation and discharge. She also feels some vaginal pressure and low back pain in her sacrum, starts with menses and then stays for a week or so. She co vaginal discharge with odor and internal discomfort and then it resolves spontaneously. she has lost 45 lbs with the INBEP diet Female Reproductive History Last Menstral Period: 02/01/18 Cycle Length: 21-35 Bleeding Duration: 2 Control Method: vasectomy Questions: Metorrhagia: No, Sexually active: Yes, Dyspareunia: No, PCB: No Pregancy History 2 Elective abortions Hx Para 2 Spontaneous abortions Past Pregnancies Del. DatName GA/WeeksOutcome Route [facility] LgAnestheCOel LocaProviderFOB e ht en ia tn Unknown Arianne-29 Unknown Be-21 ROS Const Constitutional: Reports weight loss; denies poor appetite, headache(s), fever(s), increased appetite, weight gain or fatigue Cardio Card: Denies chest pain Resp Resp: Denies dyspnea or cough GI GI: Reports as per HPI; denies vomiting, nausea, abdominal pain or constipation : Reports as per HPI Musc Musc: Reports as per HPI Skin Skin/Breast: Denies breast lump, breast pain, breast skin changes or change in hair Exam Const General: cooperative, healthy appearing, comfortable, no acute distress, well developed Nutritional Appearance: average body habitus Orientation: alert [facility] Head: normal to inspection, normocephalic Neck Neck: normal visual inspection, trachea midline Thyroid: thyroid normal Resp Effort AND Inspection: normal respiratory effort GI Inspection: normal to inspection, non-distended Palpation: soft, no hepatosplenomegaly General: bladder normal to palpation External Female Exam: normal external appearance, normal appearance of the urethra Urethra: normal appearance of the urethra, normal palpation, no discharge Speculum Exam - Vagina: normal appearance of the vagina, normal vaginal discharge Speculum Exam - Cervix: normal appearance of the cervix, nontender Bimanual Exam- Vagina AND Uterus: bladder normal to palpation, No cervical tenderness, uterine mobility normal, uterine consistency normal, normal cervical palpation, uterus non-tender, uterus enlarged Bimanual Exam- Adnexa, other: normal adnexae, adnexae mobile, no adnexal masses, pelvic support normal Pelvic Support: normal Skin General: no rashes or lesions noted Assessment AND Plan Problems 1. Recurrent low back pain M54.5 2. Dysmenorrhea N94.6 3. Recurrent vaginitis N76.0 Plan recommend pelvic ultrasound, vaginal culture evaluation when she has her next round of symptoms. discussed options of continuous OCP versus hsyterectomy- patient wishes to proceed with a hysterectomy. plan for LAV[facility] BS cystoscopy. handout on hysterectomy given with risks benefits alternatives discussed. Orders Orders: Coding Level of Care Code Off vis,est,level 4 Diagnoses Recurrent low back pain M54.5 Dysmenorrhea N94.6 Recurrent vaginitis N76.0 02/05/18 1354 <Electronically signed by Lavern Angeles MD> Date Lavern Angeles MD Cosigner Signature: Date (if applicable) CC: ALLERGIES ALLERGIES DATE TYPE / CODE NAME / CODE REACTION SEVERITY SOURCE 10/21/2018 Drug adhesive Rash Unknown [facility] Allergy/416 tape/[id number] Hospital 443126(SNOM (RXNORM) Repository ED CT) 06/07/2018 Drug No Known Unknown [facility] Allergy/416 Allergies/F0019 Hospital 314686(SNOM 63518(RXNORM) Repository ED CT) ENCOUNTERS ENCOUNTERS ADMIT/DISCHARGE ACCOUNT ADMITTING ENCOUNTER LOCATION SOURCE NUMBER CLASS 11/30/2018 [id number] Ambulatory [place] 6 [facility] ing:PT Repository 10/30/2018 [id number] Ambulatory [place] 1 [facility] ing:HPRAD Repository 10/30/2018/ [id number] Ambulatory BMSBuilding:B [place] 8 4 [facility] Repository 10/21/2018/12/09 [id number] Emergency [place] [facility] 1 [facility] ing:ED Repository 06/19/2018/ [id number] Ambulatory [place] Sar[place] 8 7 [facility] ing:[facility] Repository 06/07/2018/ [id number] Ambulatory BMSBuilding:B [place] 8 9 [facility] Repository 05/15/2018/ [id number] Ambulatory BMSBuilding:B [place] 8 0 [facility] Repository 05/04/2018 [id number] Ambulatory BMSBuilding:B [place] 0 MS.[facility] Repository 05/03/2018/ [id number] Ambulatory [place] Sar[place] 8 2 [facility] ing:SDCRoom: Repository MS301 05/03/2018 [id number] Ambulatory BMSBuilding:B [place] 6 [facility] Repository 05/03/2018 [id number] Ambulatory BMSBuilding:W [place] 3 [facility] Repository 02/09/2018 [id number] Ambulatory [place] 5 [facility] ing:US Repository 02/05/2018/ [id number] Ambulatory BMSBuilding:B [place] 8 1 [facility] Repository PAYERS PAYERS ENCOUNTER GUARANTOR PAYER SUBSCRIBER SOURCE 11/30/2018 SHANA [place] Primary Insurance:[facility] NOT GIVENUNK [place] [id number] PACKAGE [facility] Number: Effective [facility] [place] Date:2018-10-30 Repository 30095Fsz: () 11/30/2018 Secondary CRYSTAL J [place] Insurance:ANTHEMPolic DALRYMPLEDOB: [facility] Number: [id number] [id number] Repository Date:2914-64-92[address] [place] [id number]: 11/30/2018 Tertiary NOT GIVENUNK [place] Insurance:SELF PAY [facility] Number: Effective Repository Date:2018-10-30 10/30/2018 SHANA S Primary CRYSTAL J [place] [id number] Insurance:ANTHEMPolic DALRYMPLEDOB: [facility] y [place]: [id number] [id number] Repository 81875Wpp: (330) Date:6795-82-58HD [address] () [address] [place] [phone]: 10/30/2018 Secondary NOT GIVENUNK [place] Insurance:SELF PAY [facility] Number: Effective Repository Date:2018-10-30 10/30/2018 SHANA S Primary CRYSTAL J [place] [id number] Insurance:ANTHEMPolic DALRYMPLEDOB: [facility] y Number: [id number] [id number] Repository 52348Xdo: (330) Date:2358-99-67QC [phone] () [address] [place] [phone]: 10/30/2018 Secondary NOT GIVENUNK [place] Insurance:SELF PAY [facility] Number: Effective Repository Date:2018-10-30 10/21/2018 SHANA S Primary CRYSTAL J [place] [id number] Insurance:ANTHEMPolic DALRYMPLEDOB: [facility] y Number: [id number] [id number] Repository 76891Gix: (330) Date:1243-73-50MN [phone] () [address] [place] [phone]: 10/21/2018 Secondary NOT GIVENUNK [place] Insurance:SELF PAY [facility] Number: Effective Repository Date:2018-10-21 06/19/2018 SHANA S Primary CRYSTAL J [place] [id number] Insurance:ANTHEMPolic DALRYMPLEDOB: [facility] y Number: [id number] [id number] Repository 76[address]Hla: (330) Date:1580-98-46FM [phone] () [address] [place] [phone]: 06/19/2018 Secondary NOT GIVENUNK [place] Insurance:SELF PAY [facility] Number: Effective Repository Date:2018-06-06 06/07/2018 Shana Sierra Primary CRYSTAL J [place] [id number] Insurance:ANTHEMPolic DALRYMPLEDOB: [facility] y Number: [id number] [id number] Repository 13896Ysy: (330) Date:8727-83-56NP [phone] () [address] [place] [phone]: 06/07/2018 Secondary NOT GIVENUNK [place] Insurance:SELF PAY [facility] Number: Effective Repository Date:2018-06-07 05/15/2018 Shana Sierra Primary CRYSTAL J [place] [id number] Insurance:ANTHEMPolic DALRYMPLEDOB: [facility] y Number: [id number] [id number] Repository 77547Qxt: (330) Date:8357-16-72YC [phone] () [address] [place] [phone]: 05/15/2018 Secondary NOT GIVENUNK [place] Insurance:SELF PAY [facility] Number: Effective Repository Date:2018-05-15 05/04/2018 Shana Sierra Primary CRYSTAL J [place] [id number] Insurance:ANTHEMPolic DALRYMPLEDOB: [facility] y Number: [id number] [id number] Repository 35064Vys: (330) Date:5413-08-13HK [phone] () [address] [place] [phone]: 05/04/2018 Secondary NOT GIVENUNK [place] Insurance:SELF PAY [facility] Number: Effective Repository Date:2018-05-04 05/03/2018 Shana Sierra Primary CRYSTAL J [place] [id number] Insurance:ANTHEMPolic DALRYMPLEDOB: [facility] y Number: [id number], [place] [id number] Repository 38358Rwu: (330) Date:5804-70-14SF [address] () [address] [place] [phone]: 05/03/2018 Secondary NOT GIVENUNK [place] Insurance:SELF PAY [facility] Number: Effective Repository Date:2018-04-13 05/03/2018 Shana S Primary CRYSTAL J [place] [id number] Insurance:ANTHEMPolic DALRYMPLEDOB: [facility] y Number: [id number], [place] [id number] Repository 080[address]Icy: (330) Date:5153-52-80EE [phone] () [address] [place] [phone]: 05/03/2018 Secondary NOT GIVENUNK [place] Insurance:SELF PAY [facility] Number: Effective Repository Date:2018-05-03 05/03/2018 Shana S Primary CRYSTAL J [place] [id number] Insurance:ANTHEMPolic DALRYMPLEDOB: [facility] y Number: [id number], [place] [id number] Repository 958[address]Dpj: (330) Date:5815-12-79FZ [address] () [address] [place] [phone]: 05/03/2018 Secondary NOT GIVENUNK [place] Insurance:SELF PAY [facility] Number: Effective Repository Date:2018-05-03 02/09/2018 Shana S Primary CRYSTAL J [place] [id number] Insurance:ANTHEMPolic DALRYMPLEDOB: [facility] y Number: [id number], [place] [id number] Repository 85801Kqz: (330) Date:6886-17-76CU [address] () [address] [place] [id number]: 02/09/2018 Secondary NOT GIVENUNK [place] Insurance:SELF PAY [facility] Number: Effective Repository Date:2018-02-05 02/05/2018 Shana Hernandez CRYSTAL [place] [id number] Insurance:ANTHEMPolic DALRYMPLEDOB: [facility] y Number: [id number], [place] [id number] Repository 15710Kag: (330) Date:4038-00-24CA [phone] () [place], [place] [address]JF: 02/05/2018 Secondary NOT GIVENUNK [place] Insurance:SELF PAY [facility] Number: Effective Repository Date:2018-02-05
== END ==
PROVIDERS: Family Provider Family Medicine; PCP Family Medicine; Referring Provider Orthopaedic Surgery; Visit Provider Orthopaedic Surgery
DX: M25.519 Pain in unspecified shoulder (principal)
CPT/HCPCS: 73030

== ENCOUNTER 2018-11-30 11:30 | Outpatient (RCR) | payer BC, SELFPAY ==
[2018-10-30 09:33] VITALS: BMI 41.5
--- NOTE | 2018-10-31 12:48 | HP.PTEVAL ---
Patient's Visit Information KIMBERLY PASCUAL is a 48 year old F referred to Physical Therapy by Lulu Avelar DO with a diagnosis of R humeral Fx. Date of Evaluation: 10/31/18 Physical Therapist: Fidencio Costa, PT, ATC - Visit Plan Frequency: 2-3x /Week Duration: 4-6 Weeks Plan: PROM, progress as kelly - Subjective Findings: Pt reports she fell on the ice approximately one week ago. Pt hit R shoulder on her steps. Pt reports she went to the ER which xrayed her R shoulder and said she fractured her R humerus. Pt reports she was placed in a sling, but notes she was told sh didnt have to wear thw sling if she didnt want to. Pt reports her R shoulder is much improved over the past week. Pt is no having any sleep difficulty. 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 0/10 pain at rest, 3/10 at worst. Pt reports sig difficulty with any reaching activity or overhead movments. - Pain R shoulder Pain Intensity (Out of 10): 0 Pain Intensity Range: 3 - Objective Neuro: B UE sensation is WNL to light touch. B bicepital reflex= 2/3. Palpation: SORE ON lateral R shoulder. No obvious deformity present at this time. ROM: L shoulder flex= 170, abd= 170, ER= 45, IR WNL; R shoulder flex= 35, abd= 40. MMT: L shoulder is 5/5 throughout. R shoulder 2-/5 and painful - Goals Goal 1:: Decrease R shoulder pain x 50% to aid with sleep Goal Time Frame: 4-6 Weeks Goal 2:: Increase R shoulder strength x 1 grade to aid with IADL's Goal Time Frame: 4-6 Weeks Goal 3:: Increase R shoulder ROM x 50 degrees to aid with overhead lifting Goal Time Frame: 4-6 Weeks Goal 4:: I with HEP Goal Time Frame: 4-6 Weeks - Rehabilitation Potential Physical Therapy Diagnosis: R shoulder pain, weakness, and decreased ROM secondary to R humeral fx Rehabilitation Potential: Good - Anticipated Interventions Patient/Client Instruction: Educate patient on: Condition, Plan of Care For the Purpose of:: To improve self management Therapeutic Exercise to Include: Strength training, Endurance training, Flexibilty training, Passive ROM, Active ROM For the Purpose of:: To decrease pain, To increase ROM, To improve muscle performance and motor function Cryotherapy (ice pack, ice massage): Yes For the Purpose of:: To decrease pain Thank you for the opportunity to evaluate your patient. For Medicare and Medicare HMO plans, please review the plan of care and approve it. It will need to be FAXED BACK to us at [phone] for Medicare purposes. For Medicare only, by signing this I certify the plan of care. Please let me know if there are questions or concerns regarding this plan of care. Physician Signature: Date:
--- NOTE | 2019-01-23 13:46 | HP.PT.NRP ---
HP - Discharge Summary (1) - Patient Information KIMBERLY PASCUAL was seen in my office for initial evaluation on 10/31/18. The following Plan of Care was established for this patient: Initial Frequency: 2-3x /Week Initial Duration: 4-6 Weeks - Anticipated Interventions Patient/Client Instruction: Educate patient on: Condition, Plan of Care For the Purpose of:: To improve self management Therapeutic Exercise to Include: Strength training, Endurance training, Flexibilty training, Passive ROM, Active ROM For the Purpose of:: To decrease pain, To increase ROM, To improve muscle performance and motor function Cryotherapy (ice pack, ice massage): Yes For the Purpose of:: To decrease pain This patient was last seen in our office . Pertinent comments regarding their Physical therapy will appear below: Pt was last treated 11/30/18 for her R humeral fx. Pt has not returned since that date, and is therefore discontinued at this time. At this point I will be discontinuing this patient from physical therapy. I would be happy to see this patient again in the future if found appropriate by the physician. Thank you! Fidencio Costa, PT, ATC
--- OUTSIDE RECORDS SUMMARY | 2019-02-01 14:53 | XMS RPT_ITS ---
:1970 Author Organization OHIP Support Name Relationship Address Phone KAMILA PASCUAL Unavailable [address] + [place] [address] SHEAREREQU Unavailable [address] + [place] [address] KAMILA PASCUAL Unavailable [address] + [place] [address] TRI Unavailable [address] + [place] [address] KAMILA PASCUAL Unavailable [address] + [place] [address] TRI Unavailable [address] + [place] [address] KAMILA PASCUAL Unavailable [address] + [place] [address] TRI Unavailable [address] + [place] [address] KAMILA PASCUAL Unavailable [address] + [place] [address] TRI Unavailable [address] + [place] [address] KAMILA PASCUAL Unavailable [address] + [place] [address] TRI Unavailable [address] + [place] [address] KAMILA PASCUAL Unavailable [address] + [place] [address] TRI Unavailable [address] + [place] [address] KAMILA PASCUAL Unavailable [address] + [place] [address] TRI Unavailable [address] + [place] [address] SAMARA, KAMILA Unavailable [address] + [place] [address] TRI Unavailable [address] + [place] [address] SAMARA, KAMILA Unavailable [address] + [place] [address] TRI Unavailable [address] + [place] [address] SAMARA, KAMILA Unavailable [address] + [place] [address] TRI Unavailable [address] + [place] [address] SAMARA, KAMILA Unavailable [address] + [place] [address] TRI Unavailable [address] + [place] [address] SAMARA, KAMILA Unavailable [address] + [place] [address] TRI Unavailable [address] + [place] [address] Care Team Providers Name Role Phone Lulu Avelar Attending Unavailable NAUMOFF, GAVI Referring Unavailable Lulu Avelar Attending Unavailable Lulu Avelar Referring Unavailable NAUMOFF, CARROLLTON Primary Care Unavailable Lulu Avelar Attending Unavailable Lulu Avelar Referring Unavailable NAUMOFF, CARROLLTON Primary Care Unavailable Lavern Angeles Attending Unavailable NAUMOFF, GAVI Referring Unavailable NAUMOFF, GAVI Primary Care Unavailable Lavern Angeles Attending Unavailable VarshaonyLavern Referring Unavailable NAUMOFF, GAVI Primary Care Unavailable Lavern Angeles Attending Unavailable Lavern Angeles Referring Unavailable NAUMOFF, GAVI Primary Care Unavailable Lavern Angeles Attending Unavailable Lavern Angeles Referring Unavailable NAUMOFF, GAVI Primary Care Unavailable Lavern Angeles Consulting Unavailable Lavern Angeles Attending Unavailable Lavern Angeles Referring Unavailable NAUMOFF, GAVI Primary Care Unavailable Lavern Angeles Consulting Unavailable Lavern Angeles Attending Unavailable NAUMOFF, GAVI Referring Unavailable NAUMOFF, GAVI Primary Care Unavailable Saul Kwan Attending Unavailable Lavern Anegles Referring Unavailable Marysol Dunn Attending Unavailable Marysol Dunn Referring Unavailable JEFFERSON, GAVI Primary Care Unavailable Lavern Angeles Attending Unavailable CHUCKUMGAVI CUEVAS Referring Unavailable NAUMOFF, GAVI Primary Care Unavailable JEFFERSON, GAVI Primary Care Unavailable Lillie Gabrielo Attending Unavailable PROBLEMS PROBLEMS DATE TYPE CONDITION / CODE ATTENDING STATUS SOURCE 12/03/2018 Unknown 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, Active [place] Unspecified fracture Lulu [facility] right humerus, Repository subsequent encounter for fracture with routine healing / S42.201D(ICD-10) 10/30/2018 Unknown M25.519 - Pain in Chicorelli, Active [place] unspecified [facility] / M25.519(ICD-10) Hospital Repository 10/21/2018 Unknown S42.201A - Gabriel, Apolinar Active [place] Unspecified fracture [facility] right humerus, Repository initial encounter for closed fracture / S42.201A(ICD-10) 06/19/2018 Unknown N32.89 - Other Marysol Dunn Active [place] specified disorders Community of bladder / Hospital N32.89(ICD-10) Repository 05/15/2018 Unknown N93.9 - Abnormal Marcanthony, Active [place] uterine and vaginal [facility] bleeding, Hospital unspecified / Repository N93.9(ICD-10) 05/15/2018 Unknown R10.2 - Pelvic and Marcanthony, Active [place] perineal pain / [facility] R10.2(ICD-10) Hospital Repository 05/04/2018 Unknown G89.18 - Other acute Marcanthony, Active [place] postprocedural pain [facility] / G89.18(ICD-10) Hospital Repository 05/24/2018 Unknown Z01.810 - Encounter Saul Kwan Active [facility] for preprocedural [facility] cardiovascular Hospital examination / Repository Z01.810(ICD-10) 02/05/2018 Unknown N94.6 - Marcanthony, Active [place] Dysmenorrhea, [facility] unspecified / Hospital N94.6(ICD-10) Repository 02/05/2018 Unknown M54.5 - Low back Marcanthony, Active [place] pain / M54.5(ICD-10) [facility] Repository PROCEDURES PROCEDURES No Procedure Records FoundRESULTS RESULTS ORTHOPEDIC VISIT Observed: 11/08/2018 Status: F Source: [place] REPORT 3:51 PM [facility] REPOSITORY [facility] Orthopaedics AND Sports Medicine [address] [facility] [address] [place] [address] OFFICE VISIT Date of Service: 10/30/18 MR#: [id number] Acct: [id number] Name: KIMBERLY PASCUAL Rep #: [id number] : 1970 Provider: Lulu Avelar DO Age/Sex: 48/F Location[place] [facility] [place] [place] Status: Signed Intake Vital Signs10/30/18 Body Mass [...] home: Yes additional social history: -[employer] 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 There is no [...] proximal end of right humerus, initial encounter S47.212G Encounter type: initial encounter Fracture alignment: nondisplaced Fracture morphology: other fracture 11/08/18 1551 <Electronically signed by Lulu Avelar DO> Date Lulu Avelar DO Cosigner Signature: Date (if applicable) CC: INITAL EVALUATION (1) Observed: 10/31/2018 Status: F Source: [place] Rodriguez PT 12:49 PM [facility] REPOSITORY [facility] Physical Therapy [address] [place] [address] Fax REHABILITATION SERVICES INITIAL EVALUATION MR#: [id number] Acct: [id number] Name: SAMARAKIMBERLY Chavez Rep #: [id number] : 1970 48 From: Fidencio Costa PT, [...] having any sleep difficulty. 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 0/10 pain [...] to be FAXED BACK to us at [phone] for Medicare purposes. For Medicare only, by signing this I certify the plan of care. Please let me know if there are questions or concerns regarding this plan of care. Physician Signature: Date: <Electronically signed by Fidencio Costa PT, ATC> 10/31/18 1249 CC: Gavi Garrison MD; Lulu Avelar DO [facility] Signed SHOULDER MIN 2 VIEWS Observed: 10/30/2018 Status: F Source: [place] 9:43 AM [facility] REPOSITORY [facility] Imaging Services [address] [place] [address] Shoulder min 2 Views MR#: [id number] Acct: [id number] Name: KIMBERLY PASCUAL Rep #: [id number] : 1970 F 48 From: Ángel Julian MD PCP: Gavi Garrison MD Status: REG CLI Study: Shoulder min 2 Views Date of Exam: 10/30/18 Exam# [id number] Ordering Dr: Lulu Avelar DO STUDY: X-RAY [...] CC: Gavi Garrison MD; Lulu Avelar DO Nurse Behavioral Health Care: Signed EMERGENCY DEPARTMENT Observed: 10/21/2018 Status: F Source: [place] SUMMARY 11:46 AM [facility] REPOSITORY [facility] Medical Records Department [address] [place] [address] Emergency Department Summary 10/21/18 1141 MR#: [id number] Acct: [id number] Name: KIMBERLY PASCUAL Rep #: [id number] : 1970 48 From: Apolinar Gabriel MD [...] and swath and follow up with orthopedic long distance operator Disposition: Discharged home in stable condition with spouse Impression: Nondisplaced proximal humeral fracture right This note was generated with Stootie dictation software. It may contain incorrect words, spelling, and punctuation that were not noted in review of the chart prior to signing ED Disposition - Plan for ED Patient: Disposition: Home or Assisted Living Chief Complaint: Upper Extremity Injury Instructions: ED Fx Shoulder Prescriptions: Hydrocodone Bitart/Apap 5-325 [[place] 5MG-325MG] 1 tablet PO Q6H PRN PRN 3 Days #10 tablet PRN Reason: Pain Referrals: Gavi Garrison MD [Primary Care Provider] - Lulu Avelar DO [STAFF PHYSICIAN] - 5-7 Days Additional Instructions: Your your prescription was electronically transmitted to [facility] pharmacy on [facility]. What to do if you have Problems For any increased pain, shortness of breath, bleeding, nausea or vomiting, chest pain, or any unexpected problems, contact your Primary Care Provider. Call [facility] ([phone]) or report to the closest Emergency Room. Call 911 if necessary. 10/21/18 1146 <Electronically signed by Apolinar Gabriel MD> Date Apolinar Gabriel MD Cosigner Signature (If Indicated): Date CC: Gavi Garrison MD; Lulu Avelar DO SHOULDER MIN 2 VIEWS Observed: 10/21/2018 Status: F Source: [place] 11:16 AM [facility] REPOSITORY [facility] Imaging Services [address] [place] [address] Shoulder min 2 Views MR#: [id number] Acct: [id number] Name: KIMBERLY PASCUAL Rep #: [id number] : 1970 F 48 From: Joshua Crews DO PCP: Gavi Garrison MD Status: DEP ER Study: Shoulder min 2 Views Date of Exam: 10/21/18 Exam# [id number] Ordering Dr: Apolinar Gabriel MD STUDY: X-RAY [...] CC: Gavi Garrison MD; Apolinar Gabriel MD Nurse Behavioral Health Care: Signed OPERATIVE REPORT Observed: 06/19/2018 Status: F Source: [place] 12:26 PM [facility] REPOSITORY [facility] Medical Records Department [address] [place] [address] Operative Report 06/19/18 1223 MR#: [id number] Acct: [id number] Name: KIMBERLY PASCUAL Rep #: [id number] : 1970 47 From: Marysol Dunn MD PCP: Gavi Garrison MD Status: REG [facility] [place] Y Location: [place] [address] Problem List (1) Bladder mass Status: Acute Report of Operation Date of Procedure: 06/19/18 Pre-Operative Diagnosis: Bladder mass Post-Operative Diagnosis: same Surgery/Procedure Performed:: cystoscopy, transurethral resection bladder tumor, small Description of Surgical Findings:: 1cm mass and deep sample removed. hemostasis achieved. no other lesion identified. no complication. commercial counsel: Marysol Dunn Type of Anesthesia:: General Special [...] 06/19/2018 Status: F Source: [place] 12:10 PM [facility] REPOSITORY Patient: KIMBERLY PASCUAL : 1970 (47/F) Acct Num: [id number] Phys: Marysol Dunn MD Unit Num: [id number] Loc: [facility] [place] Specimen: [id number] Received: 06/19/18 - 1228 Spec Type: Mass TISSUES TISSUES: Urinary bladder, NOS COMMENT Cautery artifacts are noted in both pieces. Detrusor muscle is not seen in the submitted specimen. Immunohistochemistry ([id number]) supports the above diagnosis. Case has been [...] one cassette. / SJ:bernard 06/19/18 TC:3 CPT: 24690 HEADER OPERATION: TUR bladder, Olympus PRE-OP DIAGNOSIS: [...] on file> Performed By: #### PMASS #### [facility] [address] [facility] [place], [address] DISCHARGE INSTRUCTION Observed: 06/19/2018 Status: F Source: [place] 11:28 AM [facility] REPOSITORY [facility] Medical Records Department [address] [place] [address] Instructions for Home/Discharge Instructions 06/19/18 1126 MR#: [id number] Acct: [id number] Name: KIMBERLY PASCUAL Rep #: [id number] : 1970 47 From: Marysol Dunn MD PCP: aGvi Garrison MD Status: REG [facility] [place] Discharge Diet: No Restrictions Discharge Activity: May [...] MD IMMUNOHISTOCHEMISTRY Observed: 06/19/2018 Status: F Source: [place] 12:00 [facility] [place]IT[place] Patient: KIMBERLY PASCUAL : 1970 (47/F) Acct Num: [id number] Phys: Marysol Dunn MD Unit Num: [id number] Loc: [facility] [place] Specimen: [id number] Received: 06/20/18 - 1242 Spec Type: IMMUNO TISSUES TISSUES: Urinary bladder, NOS SPECIMEN INFORMATION: Tissue Source: Bladder mass Clinical Info: Bladder mass Specimen Number: [id number] CPT code: 31596, 17065 x2 METHODOLOGY: Deparaffinized sections of prefer/formalin-fixed tissue [...] developed and their performance characteristics determined by [facility]. They may not have been cleared or approved by the U.S. Food and Drug Administration. The FDA has determined that such clearance or approval is not necessary. INTERPRETATION: Bladder mass: Negative for malignancy. SJ:bernard 06/21/18 Case has been reviewed in consultation with Dr. Mejía who concurs with the above diagnosis. IDC:AM PHYSICIAN AND INSTITUTION [facility] [address] [place], [place] [address] Signed Lang Duong 06/21/18 <signature on file> Performed By: #### PIMM #### [facility] [address] [place] [address]. [place], [address] URINALYSIS, COMPLETE Collected: 06/18/2018 Status: F Source: [place] 12:55 PM [facility] REPOSITORY Order Comment: How was Urine Obtained? [...] URINE SEEN Performed By: #### L400.0001 #### [facility] [address] [place], [address] CBC-COMPLETE BLOOD CNT Collected: 06/08/2018 Status: F Source: [place] NO DIFF 12:42 PM [facility] REPOSITORY TYPE CODE TESTS RESULT OUT OF [...] MPV 10.1 Performed By: #### L100.0500 #### [facility] [address] [place], [address] BOAT CARPENTER OFFICE VISIT Observed: 06/07/2018 Status: F Source: [place] REPORT 1:21 PM [facility] REPOSITORY [facility] 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 Pregancy History 2 Elective abortions Hx Para 2 Spontaneous abortions Past Pregnancies Del. DatName GA/WeeksOutcome Route [facility] LocaProviderFOB e ht en ia tn Unknown [...] MD Cosigner Signature: Date (if applicable) CC: BOAT CARPENTER OFFICE VISIT Observed: 05/15/2018 Status: F Source: [place] REPORT 2:21 PM [facility] 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 Pregancy History 2 Elective abortions Hx Para 2 Spontaneous abortions Past Pregnancies Del. DatName GA/WeeksOutcome [facility] LocaProviderFOB e ht en ia tn Unknown [...] 05/04/2018 Status: F Source: [place] 9:32 AM [facility] REPOSITORY [facility] Medical Records Department [address] [place] [address] Instructions for Home/Discharge Instructions 05/04/18 0931 MR#: [id number] Acct: [id number] Name: KIMBERLY PASCUAL Rep #: [id number] : 1970 47 From: Lavern Angeles MD PCP: Gavi Garrison MD Status: REG [facility] Discharge Diet: No Restrictions Discharge Activity: Return [...] Follow Up With: Lavern Angeles MD - [phone] 05/04/18 0932 <Electronically signed by Lavern Angeles MD> Date Lavern Angeles MD CC: Gavi Garrison MD CBC-COMPLETE BLOOD CNT Collected: 05/04/2018 Status: F Source: [place] NO DIFF 5:12 AM [facility] REPOSITORY TYPE CODE TESTS RESULT OUT OF [...] MPV 10.4 Performed By: #### L100.0500 #### [facility] [address] [facility] [place], [address] OPERATIVE REPORT Observed: 05/03/2018 Status: F Source: [place] 11:27 AM [facility] REPOSITORY [facility] Medical Records Department [address] [place] [address] Operative Report 05/03/18 0729 MR#: [id number] Acct: [id number] Name: KIMBERLY PASCUAL Rep #: [id number] : 1970 47 From: Lavern Angeles MD PCP: Gavi Garrison MD Status: [facility] Y Location: [place] [id number] ADDENDUM by Lavern Angeles MD on 05/03/18 [...] uterus normal bilateral fallopian tubes and ovaries commercial counsel: Germaine Kearns Type of Anesthesia:: General Special [...] peritoneum. This was reapproximated using 0 Vicryl itlrat-ee-lpucr sutures. Excellent hemostasis was noted. The cystoscopy [...] AND PHYSICAL Observed: 05/03/2018 Status: F Source: [place] EXAM 7:29 AM [facility] REPOSITORY [facility] Medical Records Department [address] [place] [address] History and Physical 05/03/18 0726 MR#: [id number] Acct: [id number] Name: KIMBERLY PASCUAL Rep #: [id number] : 1970 47 From: Lavern Angeles MD PCP: Gavi Garrison MD Status: REG [facility] [facility] Y Location: [address] - Problem List (1) Abnormal uterine [...] Symmetrical, Neuro grossly intact. Negative for: Clonus UNDERCUTTER: Normal external genitalia. Negative for: Vulvar lesions Assessment/Plan All Active Problems (Last Reviewed 02/05/18 @ 13:13 by Kely Jiang) Abnormal uterine bleeding (Acute) Pelvic pain (Acute) This is a 47 year-old, presents for [facility] BS cystosocpy discussed surgical risks including risks of anesthesia, infection, bleeding, injury to bowel, bladder or blood vessels, and patient wishes to proceed with surgery. 05/03/18 0729 <Electronically signed by Lavern [place] MD> Date Lavern Angeles MD Cosigner Signature: Date (if applicable) CC: Gavi Garrison MD; Lavern Angeles MD Signed TYPE AND SCREEN Collected: 05/03/2018 Status: F Source: [place] 6:32 AM [facility] REPOSITORY Order Comment: Reason for Type AND Screen/Red Cells: SURGERY TYPE CODE TESTS RESULT OUT OF RANGE REFERENCE UNITS LAB B10.0800 A Normal BLOOD TYPE GEL POSITIVE LAB B100.4000 Normal Antibody NEGATIVE Screen Performed By: #### B101.7450 #### [facility] [address] [facility]. [place], [place], [address] ,URINE Collected: 05/03/2018 Status: F Source: [place] 6:26 AM [facility] REPOSITORY TYPE CODE TESTS RESULT OUT OF REFERENCE UNITS RANGE LAB L400.8000 Negative Normal HCGUQUAL Negative Result Comment: Very dilute urine specimens, as indicated by a low specific gravity, may not contain direct sales representative levels of hCG. If is still suspected, a first morning urine specimen should be collected 48 hours later and tested. Performed By: #### L400.7600 #### [facility] [address] [facility] [place], [address] HYSTERECTOMY SPECIMEN Observed: 05/03/2018 Status: F Source: [place] 12:00 AM [facility] REPOSITORY Patient: KIMBERLY PASCUAL : 1970 (47/F) Acct Num: [id number] Phys: Bridgette PEREZ,Lavern Unit Num: [id number] Loc: [facility] [place] Specimen: [id number] Received: 05/03/181035 Spec Type: HYSTERECT TISSUES TISSUES: [...] tubes do not reveal any mass lesion. Drapery Installer sections are submitted in ten cassettes as follows: 1 - anterior cervix, 2 - posterior cervix, 3 AND 4 - anterior uterine wall, 5 AND 6 - posterior uterine wall, 7 smaller and intermediate size nodular masses, 8 largest nodular mass, 9 right fallopian tube, 10 left fallopian tube. / FLOYD:bernard 05/03/18 TC:1 CPT: 48084 HEADER OPERATION: Hysterectomy, lap assisted vaginal, salpingectomy, [...] on file> Performed By: #### PHYST #### [facility] [address] [facility]. [place], [place], [address] CBC-COMPLETE BLOOD CNT Collected: 04/13/2018 Status: F Source: [place] NO DIFF 10:39 AM [facility] REPOSITORY TYPE CODE TESTS RESULT OUT OF [...] MPV 10.5 Performed By: #### L100.0500 #### [facility] [address] [facility] [address] [place], [place], [address] LIVER PROFILE Collected: 04/13/2018 Status: F Source: [place] 10:39 AM [facility] REPOSITORY TYPE CODE TESTS RESULT OUT OF [...] BILI 0.10 Performed By: #### L500.3400 #### [facility] [address] [facility] [place], [address] PROTHROMBIN TIME W/INR Collected: 04/13/2018 Status: F Source: [place] 10:39 AM [facility] REPOSITORY TYPE CODE TESTS RESULT OUT OF RANGE REFERENCE UNITS LAB L300.4150 11.7-14.9 SECONDS Normal PROTIME 13.3 LAB L300.4200 Normal INR 1.0 Performed By: #### L300.3900, L300.4310 #### [facility] [address] [facility] [place], [address] PARTIAL THROMBOPLAST Collected: 04/13/2018 Status: F Source: [place] TIME 10:39 AM [facility] REPOSITORY TYPE CODE TESTS RESULT OUT OF RANGE REFERENCE UNITS LAB L300.4310 24.1-36.2 Seconds Normal PTT 28.9 Performed By: #### L300.3900, L300.4310 #### [facility] [address] [facility] [place], [address] TYPE AND SCREEN Collected: 04/13/2018 Status: F Source: [place] 10:39 AM [facility] REPOSITORY Order Comment: Surgery Date: 05/03/18 Hx of Preganancy in last 3 Months No Ever experience any problems with transfusion(s)? N Hx of Transfusion in last 3 Months N Reason for Type AND Screen/Red Cells: SURGERY SURGICAL PROCEDURE: 79758 56217 TYPE CODE TESTS RESULT OUT OF RANGE REFERENCE UNITS LAB B10.0800 A Normal BLOOD TYPE GEL POSITIVE LAB B100.4000 Normal Antibody NEGATIVE Screen Performed By: #### B101.7475 #### [facility] [address] [place], [address] PELVIC (NON ) Observed: 02/09/2018 Status: F Source: [place] 3:14 PM [facility] REPOSITORY [facility] Imaging Services [address] [place] [address] Pelvic (Non ) MR#: [id number] Acct: [id number] Name: KIMBERLY PASCUAL Rep #: [id number] : 1970 F 47 From: Poncho Lawson MD PCP: Gavi Garrison MD Status: REG CLI Study: Pelvic (Non ) Date of Exam: 02/09/18 Exam# [id number] Ordering Dr: Lavern Angeles MD STUDY: ULTRASOUND [...] CC: Gavi Garrison MD; Lavern Angeles MD Nurse Behavioral Health Care: Signed TRANSVAGINAL Observed: 02/09/2018 Status: F Source: [place] NON- 3:14 PM [facility] REPOSITORY [facility] Imaging Services [address] [place] [address] Transvaginal Non- MR#: [id number] Acct: [id number] Name: KIMBERLY PASCUAL Rep #: [id number] : 1970 F 47 From: Poncho Lawson MD PCP: Gavi Garrison MD Status: REG CLI Study: Transvaginal Non- Date of Exam: 02/09/18 Exam# [id number] Ordering Dr: Lavern Angeles MD STUDY: ULTRASOUND [...] CC: Gavi Garrison MD; Lavern Angeles MD Nurse Behavioral [facility] Care: Signed [facility] OFFICE VISIT Observed: 02/05/2018 Status: F Source: [place] REPORT 1:54 PM [facility] REPOSITORY [facility] Hospitaljo. 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 HPI Pelvic/Lower back pain: Details: KIMBERLY [...] she has lost 45 lbs with the beneSol diet Female Reproductive History Last Menstral Period: 02/01/18 Cycle Length: 21-35 Bleeding Duration: 2 Control Method: vasectomy Questions: Metorrhagia: No, Sexually active: Yes, Dyspareunia: No, PCB: No Pregancy History 2 Elective abortions Hx Para 2 Spontaneous abortions Past Pregnancies Del. DatName GA/WeeksOutcome Route [facility] LgAnestheNYel LocaProviderFOB e ht en ia tn Unknown [...] Nutritional Appearance: average body habitus Orientation: alert [facility] Head: normal to inspection, normocephalic Neck Neck: [...] <Electronically signed by Lavern Angeles MD> Date Lvaern Angeles MD Cosigner Signature: Date (if applicable) CC: ALLERGIES ALLERGIES DATE TYPE / CODE NAME / CODE REACTION SEVERITY SOURCE 10/21/2018 Drug adhesive Rash Unknown [facility] Allergy/416 tape/[id number] Hospital 695039(SNOM (RXNORM) Repository ED CT) 06/07/2018 Drug No Known Unknown [facility] Allergy/416 Allergies/F0019 Hospital 366471(SNOM 18937(RXNORM) Repository ED CT) ENCOUNTERS ENCOUNTERS ADMIT/DISCHARGE ACCOUNT ADMITTING ENCOUNTER LOCATION SOURCE NUMBER CLASS 11/30/2018 [id number] Ambulatory [facility] Chromo 6 [facility] ing:PT Repository 10/30/2018 [id number] Ambulatory Chromo Saranya 1 [facility] ing:HPRAD Repository 10/30/2018/ [id number] Ambulatory BMSBuilding:B Saranya 8 4 MS.[facility] Repository 10/21/2018/12/09 [id number] Emergency Chromo Chromo 8 1 [facility] ing:ED Repository 06/19/2018/ [id number] Ambulatory Saranya Saranya 8 7 [facility] ing:[facility] Repository 06/07/2018/ [id number] Ambulatory BMSBuilding:B Chromo 8 9 MS.[facility] Repository 05/15/2018/ [id number] Ambulatory BMSBuilding:B Saranya 8 0 MS.[facility] Repository 05/04/2018 [id number] Ambulatory BMSBuilding:B Chromo 0 MS.[facility] Repository 05/03/2018/ [id number] Ambulatory Chromo Saranya 8 2 [facility] ing:SDCRoom: Repository MS301 05/03/2018 [id number] Ambulatory BMSBuilding:B Chromo 6 MS.[facility] Repository 05/03/2018 [id number] Ambulatory BMSBuilding:W Saranya 3 [facility] Repository 02/09/2018 [id number] Ambulatory Saranya Chromo 5 [facility] ing:US Repository 02/05/2018/ [id number] Ambulatory BMSBuilding:B Chromo 8 1 MS.[facility] Repository PAYERS PAYERS ENCOUNTER GUARANTOR PAYER SUBSCRIBER SOURCE 11/30/2018 SHANA Sierra Primary Insurance:[facility] NOT GIVENUNK Saranya [id number] [facility] Number: Effective [facility] [place] Date:2018-10-30 Repository 45911Sju: () 11/30/2018 Secondary CRYSTAL J Chromo Insurance:ANTHEMPolic DALRYMPLEDOB: [facility] Number: [id number] Hospital [id number] Repository Date:[id number] [place] [id number]: 11/30/2018 Tertiary NOT GIVENUNK Chromo Insurance:SELF PAY [facility] Number: Effective Repository Date:2018-10-30 10/30/2018 SHANA S Primary CRYSTAL J Saranya [id number] Insurance:ANTHEMPolic DALRYMPLEDOB: [facility] y [place]: [id number] [id number] Repository [address]Hxy: (330) Date:2665-47-74IU [address] () [address] [place] [id number]: 10/30/2018 Secondary NOT GIVENUNK Chromo Insurance:SELF PAY [facility] Number: Effective Repository Date:2018-10-30 10/30/2018 SHANA S Primary CRYSTAL J Chromo [id number] Insurance:ANTHEMPolic DALRYMPLEDOB: [facility] y Number: [id number] [id number] Repository [address]Owb: (330) Date:7021-30-75DP [phone] () [address] [place] [phone]: 10/30/2018 Secondary NOT GIVENUNK Saranya Insurance:SELF PAY [facility] Number: Effective Repository Date:2018-10-30 10/21/2018 SHANA S Primary CRYSTAL J Chromo [id number] Insurance:ANTHEMPolic DALRYMPLEDOB: [facility] y Number: [id number] [id number] Repository [address]Kks: (330) Date:7787-59-82BN [phone] () [address] [place] [id number]: 10/21/2018 Secondary NOT GIVENUNK Saranya Insurance:SELF PAY [facility] Number: Effective Repository Date:2018-10-21 06/19/2018 SHANA S Primary CRYSTAL J Saranya [id number] Insurance:ANTHEMPolic DALRYMPLEDOB: [facility] y Number: [id number] [id number] Repository [address]Inm: (330) Date:5568-64-24QH [phone] () [address] [place] [phone]: 06/19/2018 Secondary NOT GIVENUNK Chromo Insurance:SELF PAY [facility] Number: Effective Repository Date:2018-06-06 06/07/2018 Shana Sierra Primary CRYSTAL J Saranya [id number] Insurance:ANTHEMPolic DALRYMPLEDOB: [facility] y Number: [id number] [id number] Repository 23[address]Tzw: (330) Date:6312-85-99JP [phone] () [address] [place] [phone]: 06/07/2018 Secondary NOT GIVENUNK Saranya Insurance:SELF PAY [facility] Number: Effective Repository Date:2018-06-07 05/15/2018 Shana Sierra Primary CRYSTAL J Saranya [id number] Insurance:ANTHEMPolic DALRYMPLEDOB: [facility] y Number: [id number] [place], [place] [id number] Repository [address]Uqb: (330) Date:6675-95-43OY [phone] () [address] [place] [id number]: 05/15/2018 Secondary NOT GIVENUNK Chromo Insurance:SELF PAY [facility] Number: Effective Repository Date:2018-05-15 05/04/2018 Shana Sierra Primary CRYSTAL J Saranya [id number] Insurance:ANTHEMPolic DALRYMPLEDOB: [facility] y Number: [id number] [place], [place] [id number] Repository [address]Lwk: (330) Date:2649-38-52VB [phone] () [address] [place] [id number]: 05/04/2018 Secondary NOT GIVENUNK Saranya Insurance:SELF PAY [facility] Number: Effective Repository Date:2018-05-04 05/03/2018 Shana Sierra Primary CRYSTAL J Saranya [id number] Insurance:ANTHEMPolic DALRYMPLEDOB: [facility] y Number: [id number] [id number] Repository 08[address]Uqo: (330) Date:8582-63-38NB [address] () [address] [place] [phone]: 05/03/2018 Secondary NOT GIVENUNK Chromo Insurance:SELF PAY [facility] Number: Effective Repository Date:2018-04-13 05/03/2018 Shana S Primary CRYSTAL J Saranya [id number] Insurance:ANTHEMPolic DALRYMPLEDOB: [facility] y Number: [id number] [id number] Repository [address]Jvp: (330) Date:6615-59-16FK [phone] () [address] [place] [phone]: 05/03/2018 Secondary NOT GIVENUNK Saranya Insurance:SELF PAY [facility] Number: Effective Repository Date:2018-05-03 05/03/2018 Shana S Primary CRYSTAL J Chromo [id number] Insurance:ANTHEMPolic DALRYMPLEDOB: [facility] y Number: [id number] [place] [id number] Repository 418[address]Yre: (330) Date:5797-48-81SD [address] () [address] [place] [phone]: 05/03/2018 Secondary NOT GIVENUNK Saranya Insurance:SELF PAY [facility] Number: Effective Repository Date:2018-05-03 02/09/2018 Shana S Primary CRYSTAL J Chromo [id number] Insurance:ANTHEMPolic DALRYMPLEDOB: [facility] y Number: [id number], [place] [id number] Repository 832[address]Bel: (330) Date:3635-33-51DV [address] () [address] [place] [phone]: 02/09/2018 Secondary NOT GIVENUNK Chromo Insurance:SELF PAY [facility] Number: Effective Repository Date:2018-02-05 02/05/2018 Shana Hernandez CRYSTAL Saranya [id number] Insurance:ANTHEMPolic DALRYMPLEDOB: [facility] y Number: [id number] [place], [place] [id number] Repository [address]Xmd: (330) Date:9513-89-70XV [phone] () [place], [place] [address]RQ: 02/05/2018 Secondary NOT GIVENUNK Chromo Insurance:SELF PAY [facility] Number: Effective Repository Date:2018-02-05
== END 2018-11-30 17:00 | disposition home or self-care (01) ==
LOC: PT 11:30
PROVIDERS: Family Provider Family Medicine; PCP Family Medicine; Referring Provider Orthopaedic Surgery; Visit Provider Orthopaedic Surgery
DX: S42.201D Unspecified fracture of upper end of right humerus, subsequent encounter for fracture with routine healing (principal)
CPT/HCPCS: 97110; 97161

== ENCOUNTER → 2018-12-13 08:59 | Outpatient (CLI) | payer BC, SELFPAY ==
[2018-10-30 09:33] VITALS: BMI 41.5
--- NOTE | 2018-12-13 09:02 | RAD_ITS ---
STUDY: X-RAY - RIGHT SHOULDER REASON FOR EXAM: Female, 48 years old. Follow-up fracture. TECHNIQUE: 3 view(s) of the shoulder. COMPARISON: Right shoulder, October 30, 2018. FINDINGS: There is mild degenerative arthrosis of the glenohumeral articulation. There is degenerative arthrosis of the acromioclavicular joint without inferior osseous spur formation. Normal acromion. There is almost complete healing of the humeral head fracture when compared to the prior study. The soft tissue structures are unremarkable. Normal visualized pulmonary apex. RAD/Shoulder min 2 Views IMPRESSION: Near complete healing of the humeral head fracture when compared to prior study. The remainder of the findings are stable. Electronically Signed: Hunter Song DO at 23:12 EST Tel [phone], Service support ,
== END ==
PROVIDERS: Family Provider Family Medicine; PCP Family Medicine; Referring Provider Physician Assistant; Visit Provider Physician Assistant
DX: S42.201A Unspecified fracture of upper end of right humerus, initial encounter for closed fracture (principal)
CPT/HCPCS: 73030

== ENCOUNTER → 2019-03-29 07:56 | Outpatient (CLI) | payer BC, SELFPAY ==
[2018-10-30 09:33] VITALS: BMI 41.5
--- NOTE | 2019-03-29 08:05 | BI_ITS ---
MAMMOGRAPHY - BILATERAL SCREENING REASON FOR EXAM: Female, 48 years old. Routine annual screening examination. PERTINENT HISTORY: Non-contributory. TECHNIQUE: Digital bilateral breast gael (3D mammographic acquisition) in the CC and MLO projections. 2-D mediolateral oblique (MLO) and craniocaudad (CC) views of both breasts were obtained. CAD: Full Field Digital Mammography with Computer Added Detection was performed. COMPARISON: Comparison is made with prior outside examination dated June 18, 2015. FINDINGS: Breast Composition: There are scattered areas of fibroglandular density. There are no dominant masses or suspicious calcifications. Once again, there is asymmetry of breast tissue where more breast tissue is seen in the upper outer quadrant of the right breast as compared to the left side. Stable appearance of the small bilateral axillary lymph nodes. No other significant abnormalities are identified. There has been no significant change since the prior study. BI/SCREENING MAMM (CAD), BILAT IMPRESSION: Stable bilateral screening mammogram. Yearly follow-up mammogram recommended. (A) ASSESSMENT CATEGORY: BIRADS Category 2: Benign. A letter regarding these results will be sent to the patient by the facility within 30 days. Approximately 10% of breast cancers are not detected by mammography. A normal mammogram should not delay biopsy of a clinically suspicious abnormality. [id number] Electronically Signed: Mick Eubanks, at 9:15 EDT , Service support ,
== END ==
PROVIDERS: Family Provider Family Medicine; PCP Family Medicine; Referring Provider Family Medicine; Visit Provider Family Medicine
DX: Z12.31 Encounter for screening mammogram for malignant neoplasm of breast (principal)
CPT/HCPCS: 77063; 77067

== ENCOUNTER → 2024-08-07 | Outpatient (CLI) | payer BC, SELFPAY ==
[2024-08-07 15:43] LABS: Absolute Lymphocyte Count 1.69 X10^3/uL (0.83-4.51); Absolute Neutrophil Count 2.6 X10^3/uL (2.0-7.7); Basophil# 0.07 X10^3/uL; Basophil% 1.4 % (0-1); Eosinophil# 0.14 X10^3/uL; Eosinophils% 2.8 % (0-5); Hematocrit 45.3 % (37-47); Hemoglobin 14.8 g/dL (12.0-15.0); Lymphocyte # 1.69 X10^3/ul (0.83-4.51); Lymphocyte % 33.5 % (19-41); Mean Corp Hgb Conc 32.7 g/dL (32-36); Mean Corpuscular Hgb 29.9 pg (27.0-32.0); Mean Corpuscular Volume 91.5 fL (81-99); Mean Platelet Vol. 10.2 fl (6.2-12.0); Monocyte# 0.55 X10^3/uL; Monocyte% 10.9 % (0-10); NRBC Flagged by Analyzer 0 % (0-5); Neutrophil # 2.58 X10^3/uL (2.7-7.7); Platelet Count 300 K/mm3 (150-450); RBC Distribution Width CV 12.4 % (11.6-14.6); Red Blood Count 4.95 M/mm3 (4.2-5.4); White Blood Count 5.1 K/mm3 (4.4-11.0)
[2024-08-07 16:34] LABS: AST(SGOT) 11 U/L (15-37); Alanine Aminotransfer ALT/SGPT 16 U/L (13-56); Albumin, Serum 3.9 g/dL (3.2-5.0); Alkaline Phosphatase 57 U/L (45-117); Anion Gap 5 (5-15); BUN 12 mg/dL (7-18); BUN/Creat Ratio 14.5 RATIO (10-20); Calcium,Total 9.3 mg/dL (8.5-10.1); Chloride 106 mmol/L (98-107); Cholesterol 194 mg/dL (200); Creatinine, Serum 0.83 mg/dL (0.55-1.02); EST Glomerular Filtration Rate 77 mL/min (>60); Est Glom Filt Rate - Afr Amer 93 mL/min (>60); Globulin 3.8 g/dL (2.2-4.2); Glucose 85 mg/dL (74-106); High Density Lipoprotein 64 mg/dL; Potassium 4.4 mmol/L (3.5-5.1); Protein, Total 7.7 g/dL (6.4-8.2); Sodium Level 139 mmol/L (136-145); Triglycerides 86 mg/dL; Very Low Density Lipoprotein 17 mg/dL (5-40)
[2024-08-07 16:42] LABS: Hemoglobin A1c 5.5 % (3.8-5.6)
== END | disposition home or self-care (01) ==
PROVIDERS: PCP Family Medicine; Referring Provider Nurse Practitioner Family; Visit Provider Nurse Practitioner Family
DX: Z00.00 Encounter for general adult medical examination without abnormal findings (principal)
CPT/HCPCS: 36415; 80053; 80061; 83036; 84443; 85025

== ENCOUNTER → 2025-01-29 | Outpatient (CLI) | payer BC, SELFPAY ==
[2025-01-29 13:09] LABS: Absolute Lymphocyte Count 1.89 X10^3/uL (0.83-4.51); Absolute Neutrophil Count 3.8 X10^3/uL (2.0-7.7); Basophil# 0.07 X10^3/uL; Basophil% 0.8 % (0-1); Eosinophil# 2.15 X10^3/uL; Eosinophils% 25.3 % (0-5); Hematocrit 43.5 % (37-47); Lymphocyte # 1.89 X10^3/ul (0.83-4.51); Lymphocyte % 22.2 % (19-41); Mean Corp Hgb Conc 34.5 g/dL (32-36); Mean Corpuscular Hgb 31.2 pg (27.0-32.0); Mean Corpuscular Volume 90.4 fL (81-99); Mean Platelet Vol. 10.5 fl (6.2-12.0); Monocyte# 0.55 X10^3/uL; Monocyte% 6.5 % (0-10); NRBC Flagged by Analyzer 0 % (0-5); Neutrophil # 3.83 X10^3/uL (2.7-7.7); POSITIVE DIFFERENTIAL YES; Platelet Count 287 K/mm3 (150-450); RBC Distribution Width CV 12.6 % (11.6-14.6); RBC Distribution Width SD 42.1 fl (35.1-43.9); Red Blood Count 4.81 M/mm3 (4.2-5.4); White Blood Count 8.5 K/mm3 (4.4-11.0)
[2025-01-29 13:50] LABS: ALB/GLOB Ratio 1.2 RATIO (0.9-2.4); AST(SGOT) 17 U/L (<=31); Alanine Aminotransfer ALT/SGPT 17 U/L (<=34); Alkaline Phosphatase 69 U/L (35-104); Anion Gap 10 (5-15); BUN 13 mg/dL (4-19); BUN/Creat Ratio 16.3 RATIO (10-20); Calcium,Total 9.2 mg/dL (7.6-11.0); Carbon Dioxide 23.6 mmol/L (21.0-32.0); Chloride 106 mmol/L (98-108); Creatinine, Serum 0.82 mg/dL (0.70-1.20); EST Glomerular Filtration Rate 86 (>60); Globulin 3.4 g/dL (2.2-4.2); Glucose 91 mg/dL (70-99); Potassium 4.5 mmol/L (3.3-5.1); Protein, Total 7.4 g/dL (5.9-8.4); Sodium Level 140 mmol/L (133-145); Total Bilirubin 0.38 mg/dL (0.00-1.30)
[2025-01-29 14:14] LABS: Differential Indicated SCAN CRITERIA MET
== END | disposition home or self-care (01) ==
LOC: VSLAB 12:00
PROVIDERS: PCP Nurse Practitioner Family; Visit Provider Nurse Practitioner Family
DX: R19.7 Diarrhea, unspecified (principal)
CPT/HCPCS: 36415; 80053; 85025